=== PATIENT | male | born 1955 | race Caucasian/White ===

== ENCOUNTER 2019-04-22 11:30 | Inpatient (IN) | payer OTHER ==
[~2019-04-22] VITALS: Ht 175.3 cm; Wt 48.1 kg
--- NOTE | 2019-05-05 17:45 | Pre-op HX & Phy Repo 2 SIG ---
DATE OF ADMISSION: 05/06/2019 HISTORY OF PRESENT ILLNESS: The patient is a 63-year-old male in overall stable health with a malfunctioning ileostomy. The patient has a past history of ulcerative colitis and in 1990, underwent proctocolectomy with creation of a conventional Nikole ileostomy. In 1991, he underwent surgery to convert his conventional ileostomy to a Pablo type of continent ileostomy in [place] at the . In 1997, he had revision of his pouch with detachment from the abdominal wall. Four years after his surgery, he had ongoing abdominal pain and difficulty eating and multiple admissions for small bowel obstruction. He was found down at home in June 2018 and presented to the emergency room by ambulance with acute renal failure, severe dehydration, sepsis, and underwent surgery for a perforation of his Pablo continent ileostomy pouch. Dense adhesions were described. The conventional ileostomy was created. Pathology revealed no granulomas or malignancy, but only acute inflammation and ulcerations. Of note, was that the patient presented cachectic and extremely debilitated and nutritionally depleted. Since then, the patient has recovered with normal laboratories including albumin within normal limits and wishes to undergo surgery to create another continent ileostomy. He has difficulty coping with the ileostomy and managing it. He has frequent leaks under the appliance and he has developed prolapse of up to 5 cm. He is unable to function or work. He has also had a problem with frequent small bowel obstructions requiring nasogastric tube or brief periods of time fasting at home. He also states his stoma is located in the abdominal fold, which makes it more difficult to maintain an external appliance. The patient changes his appliance daily. When he had his Pablo pouch, he states he had occasional pouchitis, which resolved with Cipro. He is scheduled to undergo surgery to create another continent ileostomy. OPERATIONS: In addition to the above, he underwent bilateral inguinal hernia repair, one in 2016 of right side followed by infection with no mesh and the left side in 2017. MEDICATIONS: Acyclovir daily, diclofenac topical for leg cramps, etodolac for abdominal and joint pain, [place] 10 mg, Cymbalta for posttraumatic stress disorder, gabapentin, Zantac, aspirin 81 mg, vitamin B12 and iron supplements, glipizide, lactase, and magnesium oxide for leg cramps. ALLERGIES: Some types of adhesive tape cause skin reaction. REVIEW OF SYSTEMS: 1) The patient has had suicidal issues in 2007 and had a suicide attempt with pills. He has stated if he can have another Pablo pouch, he would consider suicide. He has been seen by Psychiatry at the in [place] who provides his care. 2) Lifelong fat malabsorption. PHYSICAL EXAMINATION: The patient is 5 feet 9 inches and 120 pounds. The patient is [place] from [place] of state and will be examined upon arrival and dictated separately. IMPRESSION: 1. Malfunctioning ileostomy with prolapse and extreme difficulty managing external appliance. 2. History of ulcerative colitis. 3. Status post multiple abdominal operations. 3.1. Proctocolectomy and Nikole ileostomy in 1990. 3.2. Pablo continent intestinal reservoir in 1991 in the in [place] 3.3. Revision for pouch detachment from abdominal wall in 1997. 3.4. Resection of Pablo pouch for perforation with sepsis and finding of dense adhesions creating a conventional ileostomy in [place] on 06/28/2018. PLAN: I have had a full discussion with the patient regarding his condition, the nature of the surgery, indications, alternatives, options, and risks including bleeding, infection, injury to adjacent structures or organs, fistula, slipped valve, and need for revisions. I have also discussed the possibility that if he has a hostile or frozen abdomen that a Pablo pouch cannot be created, we will revise his conventional ileostomy or if he does not have enough small intestine or if it is diseased. I will have another repeat discussion in person when he arrives from out of state. He will undergo insertion of a dual lumen PICC line placement for intravenous hydration during bowel prep. Preoperative intravenous antibiotics started the night before surgery and preoperative subcutaneous heparin. Will Quintero M.D. DR: SEDA JOB#: [id number] CC: ELVIRA
[2019-05-06] MEDS ORDERED: LORazepam 1mg tab ORAL PRN ×2 (08:30→12:45)
[2019-05-06] MEDS ORDERED: Lidocaine 1% Plain 30 ml INJ PRN (08:30)
[2019-05-06] MEDS ORDERED: Heparin1,000 units/500ml Premix(Conc:2 units/ml) IV PRN (08:30)
[2019-05-06 09:28] LABS: BASOPHILS % (AUTO) 0.8 % (0.0-2.0); EOSINOPHILS % (AUTO) 6.3 % (0.0-3.0); HEMATOCRIT 40.9 % (42.0-52.0); HEMOGLOBIN 13.2 G/DL (14.2-18.0); LYMPHOCYTES % (AUTO) 34.5 % (20.0-45.0); MEAN CORPUSCULAR VOLUME 89 FL (80-99); MONOCYTES % (AUTO) 10.6 % (1.0-10.0); NEUTROPHILS % (AUTO) 47.8 % (45.0-75.0); PLATELET COUNT 259 K/UL (150-450); RED BLOOD COUNT 4.58 M/UL (4.70-6.10); RED CELL DISTRIBUTION WIDTH 12.4 % (11.6-14.8); WHITE BLOOD COUNT 8.6 K/UL (4.8-10.8)
[2019-05-06 09:32] LABS: INR 0.9 (0.9-1.1)
[2019-05-06 09:37] LABS: ANION GAP 8 mmol/L (5-15); BLOOD UREA NITROGEN 28 mg/dL (7-18); CALCIUM 9.3 MG/DL (8.5-10.1); CARBON DIOXIDE 26 MMOL/L (21-32); CHLORIDE 105 MMOL/L (98-107); CREATININE 0.9 MG/DL (0.55-1.30); POTASSIUM 4.6 MMOL/L (3.5-5.1); SODIUM 139 MMOL/L (136-145)
[2019-05-06 09:42] LABS: ALANINE AMINOTRANSFERASE 30 U/L (12-78); ALBUMIN 4.4 G/DL (3.4-5.0); ALBUMIN/GLOBULIN RATIO 1.4 (1.0-2.7); ALKALINE PHOSPHATASE 67 U/L (46-116); ASPARTATE AMINO TRANSFERASE 29 U/L (15-37); BILIRUBIN,TOTAL 0.3 MG/DL (0.2-1.0)
--- NOTE | 2019-05-06 09:55 | Diagnostic Imaging Report ---
Indication: Cough Technique: One view of the chest Comparison: none Findings: Lung apices are cut off. Additional repeat imaging performed per patient request. The lungs and pleural spaces are clear. Heart size is normal. Impression: Negative
[2019-05-06] MEDS ORDERED: VITAMIN A8000 UNIT PO (11:24)
[2019-05-06] MEDS ORDERED: CALCIUM CARBON650 M2 PO (11:24)
[2019-05-06] MEDS ORDERED: HYDROCODON-ACE1 EA13 ORAL (11:24)
[2019-05-06] MEDS ORDERED: MAG-OXIDE400 M1 PO (11:24)
[2019-05-06] MEDS ORDERED: FERROUS SULFAT500 G1 MC (11:38)
[2019-05-06] MEDS ORDERED: GABAPENTIN100 MG ORAL (11:38)
[2019-05-06] MEDS ORDERED: ZOVIRAX200 MG PO (11:38)
[2019-05-06] MEDS ORDERED: ZOFRAN4 MG ORAL (11:38)
[2019-05-06] MEDS ORDERED: CYMBALTA60 MG ORAL (11:38)
[2019-05-06] MEDS ORDERED: ETODOLAC300 MG PO (11:38)
[2019-05-06] MEDS ORDERED: ASPIRIN-LOW81 MG ORAL (11:44)
[2019-05-06] MEDS ORDERED: GLIPIZIDE5 G1 MC (11:44)
[2019-05-06] MEDS ORDERED: VITAMIN D400 INTLU ORAL (11:44)
[2019-05-06] MEDS ORDERED: VITAMIN B-121000 MCG PO (11:44)
[2019-05-06 11:55] LABS: APPEARANCE,URINE CLEAR; BILIRUBIN, URINE 1+ (NEGATIVE); GLUCOSE, URINE (UA) NEGATIVE (NEGATIVE); KETONES,URINE NEGATIVE (NEGATIVE); LEUKOCYTE ESTERASE ,URINE 1+ (NEGATIVE); NITRITE,URINE NEGATIVE (NEGATIVE); PH,URINE 6 (4.5-8.0); PROTEIN,URINE 2+ (NEGATIVE); UROBILINOGEN,URINE NORMAL MG/DL (0.0-1.0)
[2019-05-06 11:56] LABS: COLOR,URINE YELLOW
[2019-05-06 12:00] VITALS: BP 130/69
[2019-05-06] MEDS: Neomycin Sulfate 500mg Tab ORAL SCH ×3 (14:29→20:13)
[2019-05-06] MEDS ORDERED: HYDROcodone/Acetamin 10/325 tab ORAL SCH (15:30)
[2019-05-06] MEDS: D5 1/2NS w/KCl 20mEq 1,000 ML IV SCH (16:03)
--- NOTE | 2019-05-06 16:08 | Pre-Procedure Note/Attestation ---
Pre-Procedure Note/Attestation Complete Prior to Procedure Planned Procedure: not applicable Procedure Narrative: PICC Indications for Procedure Pre-Operative Diagnosis: needs fpc IV access Attestation I attest that I discussed the nature of the procedure; its benefits; risks and complications; and alternatives (and the risks and benefits of such alternatives ), prior to the procedure, with the patient (or the patient's legal telephone claims representative). I attest that, if there was a reasonable possibility of needing a blood transfusion, the patient (or the patient's legal telephone claims representative) was given the [facility] standardized written summary, pursuant to the Yun[place] Blood Safety Act ([place] Health and Safety Code # 1645, as amended). I attest that I re-evaluated the patient just prior to the surgery and that there has been no change in the patient's H&P, except as documented below: Curtis Gomez MD May 06, 2019 16:08
[2019-05-06 16:09] VITALS: BP 121/69
--- NOTE | 2019-05-06 16:09 | Brief Operative Note ---
Immediate Post Operative Note Operative Note Pre-op Diagnosis: needs continuous churn buttermaker IV access Procedure: PICC Post-op Diagnosis: same as pre-op Surgeon: TOM Anesthesia: local Specimen: none Complications: none Condition: stable Fluids: none Estimated Blood Loss: minimal Drains: none Implant(s) used?: No Curtis Gomez MD May 06, 2019 16:09
--- NOTE | 2019-05-06 16:15 | Diagnostic Imaging Report ---
Indications: Needs long-term IV access Technique: Ultrasound confirms patent compressible left basilic vein. Total sterile technique, including sterile probe cover and sterile gel, hat, mask, sterile gown, large sterile drape, and preparation with 2% chlorhexidine utilized. Local anesthesia with 1% lidocaine. Under real-time ultrasound guidance, puncture basilic vein using 21-gauge needle, documented and archived, passage 0.018 guidewire under direct fluoroscopy, which was used to determine appropriate catheter length, exchange for 4 Trinidadian peel-away sheath. 4 Trinidadian Bard dual-lumen power PICC cut to 45 cm. It was inserted through the peel-away sheath. Peel-away sheath and guidewire removed. Catheter fixed to the skin. Both catheter ports aspirated and flushed. Patient tolerated procedure well, without immediate complication. Digital radiograph documents satisfactory catheter tip position, at the cavoatrial junction. Total fluoroscopy time 23.8 seconds. Total dose area product [id number] [id number] Total number of images: One Impression: Successful placement of left arm PICC under sonographic and fluoroscopic guidance, as described above.
[2019-05-06] MEDS ORDERED: HYDROcodone/Acetamin 10/325 tab ORAL PRN (16:22)
--- NOTE | 2019-05-06 16:22 | General Progress Note ---
Progress Note Progress Note H&P dictated. BUN high 28 Will give IV fluids and r/u labs in AM with iron,B12, folate levels and ferritin Full discussion regarding surgery, gastrostomy, BCIR, need for TPN with weight loss, options, risks. Will start IV antibiotics tonite via PIC line and give SQ heparin in AM pre-op Will Quitnero MD May 06, 2019 16:22
[2019-05-06] MEDS: DULoxetine 30mg cap ORAL SCH (17:09)
[2019-05-06] MEDS: Magnesium Oxide 400mg tab ORAL SCH (17:09)
[2019-05-06] MEDS: Acyclovir 200mg Cap ORAL SCH (17:55)
[2019-05-06] MEDS ORDERED: D5 1/2NS w/KCl 20mEq 1,000 ML IV SCH ×2 (18:00)
[2019-05-06 20:00] VITALS: BP 112/67
[2019-05-06] MEDS: Dyna-Hex 2% Top Sol 2oz TOPIC SCH (20:14)
--- NOTE | 2019-05-06 23:00 | Pre-op HX & Phy Repo 2 SIG ---
DATE OF ADMISSION: 05/06/2019 HISTORY OF PRESENT ILLNESS: Please see previously dictated history. The patient is now arrived from [place] of state and is examined. He is very thin and is 5 feet 9 inches and 120 pounds. He states that his weight is stable, but much lower than his usual weight. PHYSICAL EXAMINATION: VITAL SIGNS: Within normal limits with slight bradycardia approximately 60. HEENT: Within normal limits. LUNGS: Clear. HEART: Regular rhythm. BREASTS: Without masses. ABDOMEN: Soft and flat. There is a long midline scar and other abdominal scars. The Nikole ileostomy is high in the right lower quadrant just under the costal margin, which significantly contributes to his difficulty maintaining an appliance as the faceplate rubs up against the costal margin. There is some laxity of the midline fascia in the lower abdomen, but no obvious hernia. The testis and scrotum are within normal limits. He has Peyronie's disease rectal status post proctectomy. EXTREMITIES: Without edema. Pulses 3+ femoral to pedal bilaterally. NEUROLOGIC: Physiologic. IMPRESSION: 1. Malfunctioning ileostomy with prolapse and extreme difficulty managing his external appliance. 2. History of ulcerative colitis. 3. Severe fat malabsorption lifelong. 4. Diabetes, controlled with oral agents. 5. Posttraumatic stress disorder. 6. Neuropathy. 7. Chronic anemia. 8. History of ulcerative colitis. 9. Status post multiple abdominal operations 9.1. Proctocolectomy and Nikole ileostomy in 1990. 9.2. Pablo continent intestinal reservoir in 1991 in [place]. 9.3. Revision of Pablo pouch for detachment from abdominal wall 1997 9.4. Resection of Pablo pouch for perforation with sepsis and finding of dense adhesions with creation of a conventional ileostomy in [place] on 06/28/2018 with pathology revealing acute inflammation and ulcerations. PLAN: 1. Pablo continent intestinal reservoir and temporary catheter gastrostomy with takedown of conventional ileostomy. DISCUSSION: I have had a full discussion with the patient regarding his condition, the nature of the surgery, indications, alternatives, options, and risks, all of them listed in the previous dictation. I told him it was very unlikely that we will be unable to create a new Pablo pouch, but if we cannot, we will do everything possible to revise his current ileostomy to make it much more manageable and enhance his quality of life greatly. The patient understands and agrees to proceed. All questions have been answered. Will Quintero M.D. DR: SEDA JOB#: [id number] CC: ELVIRA
[2019-05-06] MEDS: Ampicillin/Sulbactam Sod 3 GM in NS 110 ML IVPB SCH (23:16)
[2019-05-07] VITALS (18 sets, daily range): BP systolic 106–132; BP diastolic 55–70
[2019-05-07] MEDS: D5 1/2NS w/KCl 20mEq 1,000 ML IV SCH (01:33)
[2019-05-07] MEDS ORDERED: Heparin 5000 units/ml inj SUBQ SCH (05:30)
[2019-05-07 05:46] LABS: BASOPHILS % (AUTO) 0.4 % (0.0-2.0); EOSINOPHILS % (AUTO) 6.9 % (0.0-3.0); HEMOGLOBIN 11.9 G/DL (14.2-18.0); LYMPHOCYTES % (AUTO) 30.2 % (20.0-45.0); MEAN CORPUSCULAR VOLUME 88 FL (80-99); MONOCYTES % (AUTO) 9.4 % (1.0-10.0); NEUTROPHILS % (AUTO) 53.2 % (45.0-75.0); PLATELET COUNT 207 K/UL (150-450); RED BLOOD COUNT 4.19 M/UL (4.70-6.10); RED CELL DISTRIBUTION WIDTH 12.2 % (11.6-14.8); WHITE BLOOD COUNT 8.7 K/UL (4.8-10.8)
[2019-05-07] MEDS: Ampicillin/Sulbactam Sod 3 GM in NS 110 ML IVPB SCH ×2 (06:11→12:00)
[2019-05-07 06:17] LABS: % IRON SATURATION 33 % (15-50); IRON 74 ug/dL (50-175); TOTAL IRON BINDING CAPACITY 225 ug/dL (250-450)
[2019-05-07 06:33] LABS: ALANINE AMINOTRANSFERASE 23 U/L (12-78); ALBUMIN 3.4 G/DL (3.4-5.0); ALBUMIN/GLOBULIN RATIO 1.5 (1.0-2.7); ALKALINE PHOSPHATASE 51 U/L (46-116); ANION GAP 6 mmol/L (5-15); ASPARTATE AMINO TRANSFERASE 25 U/L (15-37); BILIRUBIN,TOTAL 0.4 MG/DL (0.2-1.0); BLOOD UREA NITROGEN 11 mg/dL (7-18); CALCIUM 8.6 MG/DL (8.5-10.1); CARBON DIOXIDE 27 MMOL/L (21-32); CHLORIDE 109 MMOL/L (98-107); CREATININE 0.7 MG/DL (0.55-1.30); FERRITIN 282 NG/ML (8-388); POTASSIUM 4.3 MMOL/L (3.5-5.1); SODIUM 142 MMOL/L (136-145)
[2019-05-07] MEDS ORDERED: TransDerm Scop 1.5mg/72HR Patch TDERMAL ONE ×2 (07:07→09:15)
[2019-05-07] MEDS ORDERED: Zemuron 50mg/5ml Inj IV ONE (07:08)
[2019-05-07] MEDS ORDERED: Bacitracin 50000 Units Vial ONE (07:16)
[2019-05-07] MEDS ORDERED: NeoSporin Gu Irrig 1ml Amp IRRIG ONE (07:16)
[2019-05-07] MEDS ORDERED: fentaNYL 100 mcg/2 mL IV ONE (07:19)
[2019-05-07] MEDS ORDERED: Propofol 200mg/20ml IV ONE (07:20)
[2019-05-07] MEDS ORDERED: Lidocaine 1% MPF 10mg/ml 5ml ONE (07:20)
[2019-05-07] MEDS ORDERED: Midazolam 2mg/2ml Inj ONE (07:20)
--- NOTE | 2019-05-07 07:23 | Pre-Procedure Note/Attestation ---
Pre-Procedure Note/Attestation Complete Prior to Procedure Planned Procedure: not applicable Procedure Narrative: Pablo Continent Intestinal Dufur; gastrostomy Indications for Procedure Pre-Operative Diagnosis: malfunctioning ileostomy, history of ulcerative colitis Attestation I attest that I discussed the nature of the procedure; its benefits; risks and complications; and alternatives (and the risks and benefits of such alternatives ), prior to the procedure, with the patient (or the patient's legal physician relations representative). I attest that, if there was a reasonable possibility of needing a blood transfusion, the patient (or the patient's legal physician relations representative) was given the [facility] standardized written summary, pursuant to the Yuniel [place] Blood Safety Act ([place] Health and Safety Code # 1645, as amended). I attest that I re-evaluated the patient just prior to the surgery and that there has been no change in the patient's H&P, except as documented below: none Will Quintero MD May 07, 2019 07:23
[2019-05-07] MEDS ORDERED: NS Irrig 1000ml ONE (07:30)
[2019-05-07] MEDS ORDERED: Succinylcholine 20mg/ml 10ml vial ONE (07:30)
[2019-05-07] MEDS ORDERED: LR 1000ml ONE (07:30)
[2019-05-07] MEDS ORDERED: Sterile Water Irrig 1000ml IRRIG ONE (07:30)
[2019-05-07] MEDS ORDERED: NS Irrig 1000ml IRRIG ONE ×3 (07:46→08:25)
[2019-05-07] MEDS ORDERED: ePHEDrine 50mg/ml Inj ONE (08:23)
[2019-05-07] MEDS ORDERED: Sodium Chloride 10ml vial INJ ONE ×2 (08:23→08:45)
[2019-05-07] MEDS ORDERED: Morphine Sulfate 10mg/ml Inj ONE (08:43)
--- NOTE | 2019-05-07 08:58 | Anethesia Preoperative Eval ---
Anesthesia Pre-op PMH/ROS General Date of Evaluation: May 06, 2019 Time of Evaluation: 16:20 Anesthesiologist: Evelyn ASA Score: ASA 3 Mallampati Score Class I : Soft palate, uvula, fauces, pillars visible Class II: Soft palate, uvula, fauces visible Class III: Soft palate, base of uvula visible Class IV: Only hard plate visible Mallampati Classification: Class II Surgeon: Ingrid Diagnosis: Malfunctioning ileostomy Surgical Procedure: Ex laparotomy, revision of continent pouch Anesthesia History: PONV Social History: current smoker Family History: no anesthesia problems Allergies: Coded Allergies: ALCOHOL (Verified Allergy, Intermediate, 05/06/19) sever nausea when drinking alcohol Uncoded Allergies: nicotin patch (Allergy, Intermediate, Rash, 05/06/19) Medications: see eMAR Patient NPO?: Yes NPO Date: May 07, 2019 NPO Time: 0000 Past Medical History Cardiovascular: Denies: HTN, CAD, MT, valve dz, arrhythmia, other Pulmonary: Reports: COPD - mild; Denies: asthma, ZURI, other Gastrointestinal/Genitourinary: Reports: GERD, CRI - elevated Cr., other - UC s /p total colectomy Neurologic/Psychiatric: Reports: depression/anxiety, other - chronic pauin; Denies: dementia, CVA, TIA Endocrine: Reports: DM - on pills controlled; Denies: hypothyroidism, steroids, other HEENT: Denies: cataract (L), cataract (R), glaucoma, ATKA (L), ATKA (R), other Hematology/Immune: Reports: anemia; Denies: DVT, bleeding disorder, other Musculoskeletal/Integumentary: Denies: OA, RA, DJD, DDD, edema, other Other: other - malnourished PMH Narrative: as above PSxH Narrative: multiple abdominal Sx, see H&P Anesthesia Pre-op Phys. Exam Physician Exam Last Vital Signs Date Time Temp Pulse Resp B/P (MAP) Pulse Ox O2 Delivery O2 Flow Rate FiO2 05/07/19 05:20 98.3 64 17 113/65 (81) 97 05/06/19 21:00 Room Air Constitutional: NAD Neurologic: CN 2-12 intact Cardiovascular: RRR, no M/R/G Respiratory: other - some wheezing Gastrointestinal: S/NT/ND Airway Exam Mallampati Score: Class II MO: full Neck: stiff ROM: limited Teeth: missing Dentures: no upper, no lower Anesthesia Pre-op A/P Labs Hematology Test 05/06/19 09:05 05/07/19 05:10 White Blood Count 8.6 K/UL (4.8-10.8) 8.7 K/UL (4.8-10.8) Red Blood Count 4.58 M/UL (4.70-6.10) L 4.19 M/UL (4.70-6.10) L Hemoglobin 13.2 G/DL (14.2-18.0) L 11.9 G/DL (14.2-18.0) L Hematocrit 40.9 % (42.0-52.0) L 37.0 % (42.0-52.0) L Mean Corpuscular Volume 89 FL (80-99) 88 FL (80-99) Mean Corpuscular Hemoglobin 28.8 PG (27.0-31.0) 28.5 PG (27.0-31.0) Mean Corpuscular Hemoglobin Concent 32.3 G/DL (32.0-36.0) 32.3 G/DL (32.0-36.0) Red Cell Distribution Width 12.4 % (11.6-14.8) 12.2 % (11.6-14.8) Platelet Count 259 K/UL (150-450) 207 K/UL (150-450) Mean Platelet Volume 8.6 FL (6.5-10.1) 9.8 FL (6.5-10.1) Neutrophils (%) (Auto) 47.8 % (45.0-75.0) 53.2 % (45.0-75.0) Lymphocytes (%) (Auto) 34.5 % (20.0-45.0) 30.2 % (20.0-45.0) Monocytes (%) (Auto) 10.6 % (1.0-10.0) H 9.4 % (1.0-10.0) Eosinophils (%) (Auto) 6.3 % (0.0-3.0) H 6.9 % (0.0-3.0) H Basophils (%) (Auto) 0.8 % (0.0-2.0) 0.4 % (0.0-2.0) Coagulation Test 05/06/19 09:05 Prothrombin Time 9.4 SEC (9.30-11.50) Prothromb Time International Ratio 0.9 (0.9-1.1) Activated Partial Thromboplast Time 28 SEC (23-33) Chemistry Test 05/06/19 09:05 05/07/19 05:10 Sodium Level 139 MMOL/L (136-145) 142 MMOL/L (136-145) Potassium Level 4.6 MMOL/L (3.5-5.1) 4.3 MMOL/L (3.5-5.1) Chloride Level 105 MMOL/L (98-107) 109 MMOL/L (98-107) H Carbon Dioxide Level 26 MMOL/L (21-32) 27 MMOL/L (21-32) Anion Gap 8 mmol/L (5-15) 6 mmol/L (5-15) Blood Urea Nitrogen 28 mg/dL (7-18) H 11 mg/dL (7-18) Creatinine 0.9 MG/DL (0.55-1.30) 0.7 MG/DL (0.55-1.30) Estimat Glomerular Filtration Rate > 60 mL/min (>60) > 60 mL/min (>60) Glucose Level 144 MG/DL (74-106) H 104 MG/DL (74-106) Calcium Level 9.3 MG/DL (8.5-10.1) 8.6 MG/DL (8.5-10.1) Total Bilirubin 0.3 MG/DL (0.2-1.0) 0.4 MG/DL (0.2-1.0) Aspartate Amino Transf (AST/SGOT) 29 U/L (15-37) 25 U/L (15-37) Alanine Aminotransferase (ALT/SGPT) 30 U/L (12-78) 23 U/L (12-78) Alkaline Phosphatase 67 U/L (46-116) 51 U/L (46-116) Total Protein 7.6 G/DL (6.4-8.2) 5.6 G/DL (6.4-8.2) L Albumin 4.4 G/DL (3.4-5.0) 3.4 G/DL (3.4-5.0) Globulin 3.2 g/dL 2.2 g/dL Albumin/Globulin Ratio 1.4 (1.0-2.7) 1.5 (1.0-2.7) Iron Level 74 ug/dL (50-175) Total Iron Binding Capacity 225 ug/dL (250-450) L Percent Iron Saturation 33 % (15-50) Unsaturated Iron Binding 151 ug/dL (112-346) Ferritin 282 NG/ML (8-388) Vitamin B12 Level 1424 PG/ML (193-986) H Folate 18.6 NG/ML (8.6-58.9) Risk Assessment & Plan Assessment: ASA 3 Plan: GA with ETT PONV prevention Status Change Before Surgery: No Pre-Antibiotics Drug: as scheduled Donny Diaz MD May 07, 2019 08:58
[2019-05-07] MEDS: Acyclovir 200mg Cap ORAL SCH (09:00)
[2019-05-07] MEDS: Magnesium Oxide 400mg tab ORAL SCH (09:00)
[2019-05-07] MEDS: DULoxetine 30mg cap ORAL SCH (09:00)
[2019-05-07] MEDS ORDERED: Acetaminophen (Non formulary) 100 ML IV ONE (09:15)
[2019-05-07] MEDS ORDERED: Neostigmine 1mg/ml 10ml Inj ONE (09:27)
[2019-05-07] MEDS ORDERED: Glycopyrrolate 0.2mg/ml 1ml Vial ONE (09:27)
[2019-05-07] MEDS ORDERED: Tubing IV Secondary IV ONE (09:35)
[2019-05-07] MEDS ORDERED: LR 1000ml 1,000 ML IVLG SCH (11:28)
[2019-05-07] MEDS ORDERED: DiphenhydrAMINE 50mg/ml Inj IVP PRN ×2 (11:30→13:30)
[2019-05-07] MEDS ORDERED: Midazolam 2mg/2ml Inj IVP PRN (11:30)
[2019-05-07] MEDS ORDERED: Metoclopramide 10mg/2ml Inj IVP PRN (11:30)
[2019-05-07] MEDS ORDERED: Hydromorphone 0.5mg/0.5ml inj IVP PRN (11:30)
[2019-05-07] MEDS ORDERED: Meperidine 50mg/ml Inj(FOR RIGORS ONLY) IV PRN (11:30)
--- NOTE | 2019-05-07 12:27 | Brief Operative Note ---
Immediate Post Operative Note Operative Note Pre-op Diagnosis: malfunctioning ileostomy, history of ulcerative colitis Procedure: Pablo continent intestinal reservoir; gastrostomy Post-op Diagnosis: same Post-op Diagnosis: same as pre-op Findings: consistent w/pre-op dx studies Surgeon: oswald Psychologist Personnel: crystal Anesthesiologist: juana Anesthesia: general Specimen: yes - ileostomy, bowel trimming Complications: none Condition: stable Fluids: see anesthesia record Estimated Blood Loss: volume - 50cc Drains: other - 28 Gomez Pablo pouch; 18fr gastrostomy; 0.25"tristan Implant(s) used?: No Will Quintero MD May 07, 2019 12:27
[2019-05-07] MEDS ORDERED: Acetaminophen 650mg/20.3ml GT PRN (12:30)
[2019-05-07] MEDS ORDERED: Insulin Human Regular 100units/ml 3ml SUBQ SCH (12:30)
--- NOTE | 2019-05-07 12:33 | Immediate Post-Op Evaluation ---
Immediate Post-Op Evalulation Immediate Post-Op Evalulation Procedure: Ex laparotomy, creation of continent pouch Date of Evaluation: May 07, 2019 Time of Evaluation: 12:32 IV Fluids: 1400 Blood Products: Albumin 250 Estimated Blood Loss: 50 Urinary Output: 150 Blood Pressure Systolic: 116 Blood Pressure Diastolic: 52 Pulse Rate: 68 Respiratory Rate: 20 O2 Sat by Pulse Oximetry: 98 Temperature (Fahrenheit): 98.3 Pain Score (1-10): 1 Nausea: No Vomiting: No Complications none Patient Status: reacts, patent, extubated, none Hydration Status: adequate Donny Diaz MD May 07, 2019 12:33
[2019-05-07] MEDS: PCA Morphine 1mg/ml 30 ML IV PRN (12:53)
--- NOTE | 2019-05-07 13:11 | CDS Physician Query ---
Clarification is required for compliance, coding accuracy, and to reflect severity of illness for this patient Dear Dr. Will Quintero Date: 05/07/2019 [employer] Supervisor/CDS Name: Marni Coombs Clinical Documentation shows: 63 yo M with BMI 17.7 presents with malfunctioning ileostomy with prolapse and extreme difficulty managing his external appliance. HNP: He is very thin and is 5 feet 9 inches and 120 pounds. He states that his weight is stable, but much lower than his usual weight. Operation: Pablo continent intestinal reservoir; gastrostomy Please select the most appropriate option: [] Protein/Calorie Malnutrition [] Mild [] Moderate [] Severe [] Hypoalbuminemia [] Cachexia [] Underweight [] Other [] Unable to determine [] Not Applicable Present on Admission: [] Yes [] No [] Clinically Undetermined Physician signature Date Please also document in your Progress Notes and/or Discharge Summary and indicate if the condition was present on admission. MTDD
[2019-05-07] MEDS ORDERED: Naloxone 0.4mg/ml Inj IVP PRN (13:30)
[2019-05-07] MEDS ORDERED: Rate Change PCA 1 Each MISC PRN (13:30)
[2019-05-07] MEDS ORDERED: Morphine Sulfate 2mg/ml Inj(IV/IM USE ONLY) IVP PRN (13:30)
[2019-05-07] MEDS ORDERED: LORazepam 1mg tab SL PRN (13:30)
[2019-05-07] MEDS: 1/2NS w/KCl 20mEq 1000ml 1,000 ML IV SCH (14:45)
--- NOTE | 2019-05-07 17:00 | Operative Note - Dictated ---
DATE OF OPERATION: 05/07/2019 SURGEON: Will Quintero M.D. COOK [employer]GETABLE SURGEON: Champ Neil M.D. ANESTHESIOLOGIST: Donny Daiz M.D. TYPE OF ANESTHESIA: General endotracheal. PREOPERATIVE DIAGNOSES: 1. Malfunctioning ileostomy. 2. History of ulcerative colitis. 3. Status post multiple abdominal operations. 3.1. Proctocolectomy and Nikole ileostomy in 1990. 3.2. Pablo continent intestinal reservoir in 1991 in [place]. 3.3. Revision for pouch detachment from abdominal wall in 1997. 3.4. Resection of Pablo pouch for perforation with sepsis and finding of dense adhesions with creation of a conventional ileostomy in [place] on 06/28/2018. POSTOPERATIVE DIAGNOSES: 1. Malfunctioning ileostomy. 2. History of ulcerative colitis. 3. Status post multiple abdominal operations. 3.1. Proctocolectomy and Nikole ileostomy in 1990. 3.2. Pablo continent intestinal reservoir in 1991 in [place]. 3.3. Revision for pouch detachment from abdominal wall in 1997. 3.4. Resection of Pablo pouch for perforation with sepsis and finding of dense adhesions with creation of a conventional ileostomy in [place] on 06/28/2018. OPERATION PERFORMED: Pablo continent intestinal reservoir continent ileostomy with takedown of conventional ileostomy and temporary catheter gastrostomy. DESCRIPTION OF PROCEDURE: The patient was taken to the operating room and under general endotracheal anesthesia with sequential compression device stockings and Gomez catheter in place and having received preoperative intravenous antibiotics and subcutaneous heparin, the patient was prepped and draped in the usual fashion. The stoma of his ileostomy was high in the right upper quadrant just below the costal margin and would at times prolapse slightly, but most of the time was completely flush retracted. This accounted for his extreme difficulty managing his appliance. Previous midline incision was reopened. I did not excise the skin scar because the skin seemed tight. There were only mild adhesions to the undersurface of the abdominal wall, but there were multiple interloop adhesions and multiple loops of bowel in the pelvis. Adhesions were taken down starting at the ileostomy and liberating the bowel, he had a very large amount of small bowel loops all of which were completely normal. The stomach was normal. The liver was scarred, but appeared normal. The gallbladder was dilated and distended, but gradually during the procedure emptied spontaneously. There were no palpable stones and no signs of any inflammation. With a transversely oriented elliptical incision, the stoma in the right upper quadrant was mobilized and brought down into the abdomen. The fascia was closed vertically with continuous 0 looped PDS and a Betadine-soaked Ray-Amber placed into the subcutaneous tissues. The patient was very thin and the midline fascia was attenuated and adherent to the overlying skin, but he did not have a preoperative ventral hernia. The end of the ileostomy was resected dividing the mesentery between clamps ligating with 2-0 silk and then dividing the 1 inch of distal ileum that was the stoma using the linear stapler 30 Green Load with the staple line imbricated with 3-0 silk. A 12 cm proximal was marked for the collar segment. A 15 cm proximal to this, was marked for the pouch and then the two adjacent 15 cm loops of small bowel were placed side by side. With appropriately located enterotomies and using several applications of the HUI 75, the ileal reservoir was created. The staple line was completely everted and there was no evidence of any disruption or leak. The mucosal aspect was completely examined and medium hemoclips placed for hemostasis. A 3-0 silk suture placed at the apex of the pouch. The junction of the afferent bowel and pouch was marked with a 2-0 chromic and 12 cm proximal marked of the nipple valve segment. A 2 fingerbreadth mesenteric hiatus created at this point using the Thunderbeat electrosurgical device. The thickness of the abdominal wall in the right lower quadrant was only 1 cm. The appropriate length access segment was measured and marked and then preserving two good vessels to the access segment, the bowel was divided proximally with a TA-30 distally left open to become the new stoma with the mesentery divided to its base with the Thunderbeat device. The staple line was imbricated with 3-0 silk. Now, I made attempts to strip the peritoneum overlying the mesentery on each side of the valve segment, but the mesentery was very thin and somewhat fragile, so this was done very cautiously. The serosa was scarified with cautery and then with gradual intussusception, a 6.0 cm long nipple valve was created. Three applications of the PI 55 stapling device with 4.8 mm mayela were applied avoiding the mesentery. Then, I used 3-0 silk sutures to suture the access segment to the pouch on both sides of its mesentery. I then used a fourth application of the PI 55 stapling device with 4.8 mm mayela to staple the valve to the anterior pouch wall. Additional 3-0 silk sutures placed between the access segment and the pouch. Using a Steward suction cannula, there was a straight passage from the stoma into the pouch. Now, the afferent bowel was placed side by side with a pouch enterotomy and a [id number] anastomosis was created with an outer layer of interrupted 3-0 silk and then the proximal bowel opened and a full-thickness continuous locking 2-0 chromic starting posteriorly, continued anteriorly to complete a generous two fingerbreadth anastomosis. An outer layer of 3-0 silk was placed. Then, the collar was brought through the mesenteric hiatus at the junction of the access and valve segments and the collar was sutured to the access segment to itself into the pouch with multiple interrupted 3-0 silk sutures. A 28-Mexican Gomez catheter was placed into the pouch and the afferent bowel manually occluded. The pouch was distended with 140 mL of saline. There was no evidence of any leak. The pouch was decompressed and the catheter removed. The abdominal cavity was inspected and irrigated and hemostasis was satisfactory. The bladder and ureters have been protected throughout the procedure. The pouch lay nicely transversely down towards the pelvis with bowel loops cleared anatomically. At the new site low in the right lower quadrant, a transverse incision was made with a cruciate incision in the rectus fascia, a 2 fingerbreadth abdominal wall hiatus was created. The posterior pouch was sutured to the peritoneum with interrupted 3-0 Vicryl and then the access segment with its mesentery brought through the abdominal wall. The anterior pouch sutured to the peritoneum with 3-0 Vicryl. The slight redundancy of the access segment was excised and the stoma primarily matured with continuous 2-0 chromic locking sutures starting at the 3 and 9 o'clock positions. A very satisfactory stoma was achieved. The 28-Mexican Gomez catheter was appropriately positioned in the pouch and sutured to the skin with two sutures of 2-0 silk. It was flushed and connected to a gravity drainage bag. In order to provide complete decompression of the gastrointestinal tract, a catheter gastrostomy was indicated. An 18-Mexican Gomez catheter was brought through a stab incision in the left upper quadrant and placed into the stomach anterior wall of body between two concentric 2-0 chromic pursestring sutures with the balloon inflated and the stomach sutured to the anterior abdominal wall with multiple interrupted 3-0 silk sutures. The catheter was sutured to the skin with a 2-0 silk suture and then flushed and connected to a gravity drainage bag. Throughout the procedure, antibiotic soaked lap sponges had been used to protect the incision and the Dar retractor had been used. Now, the midline fascia was closed with continuous 0 looped PDS, elevating the skin edges. The skin was closed with mayela and the skin of the prior ileostomy was closed with several interrupted vertical mattress 2-0 nylon sutures as well as mayela. Final sponge and needle counts were correct. Dry sterile dressings were applied. The patient tolerated the procedure well and left the operating room in good condition. Will Quintero M.D. DR: SEDA JOB#: [id number] CC:
[2019-05-07] MEDS: Ampicillin/Sulbactam Sod 3 GM in NS 110 ML IV SCH ×2 (17:51→23:38)
[2019-05-07] MEDS ORDERED: PCA Education Pamphlet MISC ONE (18:00)
[2019-05-07] MEDS: PCA shift volume MISC SCH (19:00)
[2019-05-07] MEDS: Dyna-Hex 2% Top Sol 2oz TOPIC SCH (20:33)
[2019-05-07] MEDS: Morphine Sulfate 4mg/ml Inj (IV USE ONLY) IV PRN (20:33)
[2019-05-08] VITALS: BP 133/70
[2019-05-08] MEDS: 1/2NS w/KCl 20mEq 1000ml 1,000 ML IV SCH ×3 (00:06→20:12)
[2019-05-08] MEDS: Morphine Sulfate 4mg/ml Inj (IV USE ONLY) IV PRN (01:41)
[2019-05-08] MEDS: PCA Morphine 1mg/ml 30 ML IV PRN ×2 (02:50→15:09)
[2019-05-08 04:00] VITALS: BP 127/71
[2019-05-08] MEDS: Ampicillin/Sulbactam Sod 3 GM in NS 110 ML IV SCH ×4 (05:43→23:40)
[2019-05-08 06:03] LABS: BASOPHILS % (AUTO) 0.5 % (0.0-2.0); EOSINOPHILS % (AUTO) 0.1 % (0.0-3.0); HEMATOCRIT 37.1 % (42.0-52.0); HEMOGLOBIN 12.1 G/DL (14.2-18.0); LYMPHOCYTES % (AUTO) 8.2 % (20.0-45.0); MEAN CORPUSCULAR VOLUME 88 FL (80-99); MONOCYTES % (AUTO) 6.8 % (1.0-10.0); NEUTROPHILS % (AUTO) 84.4 % (45.0-75.0); PLATELET COUNT 211 K/UL (150-450); RED BLOOD COUNT 4.22 M/UL (4.70-6.10); RED CELL DISTRIBUTION WIDTH 11.9 % (11.6-14.8); WHITE BLOOD COUNT 17.2 K/UL (4.8-10.8)
[2019-05-08 06:40] LABS: ALANINE AMINOTRANSFERASE 19 U/L (12-78); ALBUMIN 2.9 G/DL (3.4-5.0); ALKALINE PHOSPHATASE 46 U/L (46-116); ANION GAP 9 mmol/L (5-15); ASPARTATE AMINO TRANSFERASE 25 U/L (15-37); BILIRUBIN,TOTAL 0.6 MG/DL (0.2-1.0); BLOOD UREA NITROGEN 6 mg/dL (7-18); CALCIUM 8.5 MG/DL (8.5-10.1); CARBON DIOXIDE 26 MMOL/L (21-32); CHLORIDE 107 MMOL/L (98-107); CREATININE 0.7 MG/DL (0.55-1.30); POTASSIUM 3.7 MMOL/L (3.5-5.1); SODIUM 142 MMOL/L (136-145)
[2019-05-08] MEDS: PCA shift volume MISC SCH ×2 (07:10→19:29)
--- NOTE | 2019-05-08 07:49 | General Progress Note ---
Progress Note Progress Note AVSS Comfortable with Morphine HOP WEIGHER Chest clear decreased expansion Cor reg rhythm Abdomen soft, mildly distended, incisions clean, stoma pink. Bartolome - small amount serosang WBC 17,200 Hgb 12.1 (stable) CMP okay except albumin 2.9 (was 3.4 pre-op after hydration) Imp. Ileus Atelectasis Moderate protein malnutrition - present on admission Plan: npo, gastrostomy and Pablo pouch catheters to drainage continue Gomez (pelvic dissection) TPN ambulate as tolerated with assistance Will Quintero MD May 08, 2019 07:48
[2019-05-08 08:00] VITALS: BP 108/67
[2019-05-08] MEDS: DULoxetine 30mg cap ORAL SCH (09:19)
[2019-05-08] MEDS: Acyclovir 200mg Cap ORAL SCH (09:19)
[2019-05-08 12:00] VITALS: BP 107/53
[2019-05-08 16:00] VITALS: BP 130/71
[2019-05-08 20:00] VITALS: BP 127/56
[2019-05-08] MEDS ORDERED: Dextrose 10% 1,000 ML IV PRN (20:00)
[2019-05-08] MEDS: Fat Emulsion Iv 20% 240 ML in Tpn 1,560 ML IV SCH (20:11)
[2019-05-08] MEDS: Dyna-Hex 2% Top Sol 2oz TOPIC SCH (20:14)
[2019-05-08] MEDS ORDERED: Fat Emulsion Iv 20% 250 ML IV SCH (21:00)
[2019-05-08] MEDS: NovoLOG Insulin Flexpen SUBQ SCH (23:41)
[2019-05-09] VITALS: BP 111/62
[2019-05-09] MEDS: LORazepam 1mg tab SL PRN (00:22)
[2019-05-09 04:00] VITALS: BP 126/70
[2019-05-09] MEDS: PCA Morphine 1mg/ml 30 ML IV PRN ×2 (04:09→17:56)
[2019-05-09 05:44] LABS: BASOPHILS % (AUTO) 0.3 % (0.0-2.0); EOSINOPHILS % (AUTO) 3.7 % (0.0-3.0); HEMATOCRIT 33.7 % (42.0-52.0); LYMPHOCYTES % (AUTO) 11.3 % (20.0-45.0); MEAN CORPUSCULAR VOLUME 88 FL (80-99); MONOCYTES % (AUTO) 7.1 % (1.0-10.0); NEUTROPHILS % (AUTO) 77.6 % (45.0-75.0); PLATELET COUNT 187 K/UL (150-450); RED BLOOD COUNT 3.84 M/UL (4.70-6.10); WHITE BLOOD COUNT 14.8 K/UL (4.8-10.8)
[2019-05-09] MEDS: NovoLOG Insulin Flexpen SUBQ SCH ×4 (05:59→23:47)
[2019-05-09] MEDS: Ampicillin/Sulbactam Sod 3 GM in NS 110 ML IV SCH ×4 (06:04→23:35)
[2019-05-09] MEDS: Morphine Sulfate 4mg/ml Inj (IV USE ONLY) IV PRN ×2 (06:04→10:15)
[2019-05-09 06:14] LABS: ALANINE AMINOTRANSFERASE 16 U/L (12-78); ALBUMIN 2.6 G/DL (3.4-5.0); ALBUMIN/GLOBULIN RATIO 0.8 (1.0-2.7); ALKALINE PHOSPHATASE 38 U/L (46-116); ANION GAP 4 mmol/L (5-15); ASPARTATE AMINO TRANSFERASE 24 U/L (15-37); BILIRUBIN,TOTAL 0.5 MG/DL (0.2-1.0); BLOOD UREA NITROGEN 10 mg/dL (7-18); CALCIUM 8.8 MG/DL (8.5-10.1); CARBON DIOXIDE 30 MMOL/L (21-32); CHLORIDE 104 MMOL/L (98-107); CREATININE 0.6 MG/DL (0.55-1.30); PHOSPHORUS 2.1 MG/DL (2.5-4.9); POTASSIUM 4.5 MMOL/L (3.5-5.1); SODIUM 137 MMOL/L (136-145)
[2019-05-09] MEDS: PCA shift volume MISC SCH ×2 (07:27→19:29)
[2019-05-09 08:00] VITALS: BP 130/63
[2019-05-09] MEDS: DULoxetine 30mg cap ORAL SCH (08:30)
[2019-05-09] MEDS: Acyclovir 200mg Cap ORAL SCH (08:30)
--- NOTE | 2019-05-09 10:18 | 48 Hour Post Anesthesia Eval ---
Post Anesthesia Evaluation Procedure: Ex laparotomy, creation of continent pouch Date of Evaluation: May 08, 2019 Time of Evaluation: 12:00 Blood Pressure Systolic: 107 0: 53 Pulse Rate: 80 Respiratory Rate: 18 Temperature (Fahrenheit): 98.7 O2 Sat by Pulse Oximetry: 93 Airway: patent Nausea: No Vomiting: No Hydration Status: adequate Cardiopulmonary Status: at baseline Mental Status/LOC: patient returned to baseline Post-Anesthesia Complications: 0 Follow-up care needed: N/A - further care as per primary team Inge Bhakta MD May 09, 2019 10:18
[2019-05-09 12:00] VITALS: BP 108/69
--- NOTE | 2019-05-09 14:05 | General Progress Note ---
Progress Note Progress Note AVSS Able to ambulate in hallways. Good IS effort - chest clear Abdomen soft, mild distention, incisions clean, stoma pink Urine 2225 Gastrostomy 265 bilious BCIR ileo small amount serosang WBC down 14,800 Hgb 11 Glu 173 (on TPN) Phosphorus low 2.1 Mg 1.8 Imp. Stable with ileus, malnutrition Plan: continue npo, TPN, Gomez, SNAG GRINDER Will Quintero MD May 09, 2019 14:05
[2019-05-09] MEDS ORDERED: Rate Change PCA 1 Each MISC PRN (14:15)
[2019-05-09] MEDS ORDERED: DiphenhydrAMINE 50mg/ml Inj IVP PRN (14:15)
[2019-05-09] MEDS ORDERED: Naloxone 0.4mg/ml Inj IVP PRN (14:15)
[2019-05-09] MEDS ORDERED: Morphine Sulfate 2mg/ml Inj(IV/IM USE ONLY) IVP PRN (14:15)
[2019-05-09] MEDS ORDERED: Potassium Phosphate 30 MM in NS 275 ML IV ONE ×2 (15:00→18:00)
[2019-05-09 16:00] VITALS: BP 101/58
[2019-05-09] MEDS: Dyna-Hex 2% Top Sol 2oz TOPIC SCH (19:44)
[2019-05-09] MEDS: Fat Emulsion Iv 20% 240 ML in Tpn 1,560 ML IV SCH (19:51)
[2019-05-09 20:00] VITALS: BP 110/59
[2019-05-09] MEDS: 1/2NS w/KCl 20mEq 1000ml 1,000 ML IV SCH (20:00)
[2019-05-10] VITALS: BP 125/72
[2019-05-10] MEDS: LORazepam 1mg tab SL PRN ×2 (00:19→23:56)
[2019-05-10] MEDS: Morphine Sulfate 4mg/ml Inj (IV USE ONLY) IV PRN ×4 (02:08→23:10)
[2019-05-10 04:45] VITALS: BP 110/68
[2019-05-10] MEDS: Ampicillin/Sulbactam Sod 3 GM in NS 110 ML IV SCH ×4 (05:21→23:57)
[2019-05-10 05:24] LABS: BASOPHILS % (AUTO) 0.5 % (0.0-2.0); EOSINOPHILS % (AUTO) 5.7 % (0.0-3.0); HEMATOCRIT 33.1 % (42.0-52.0); HEMOGLOBIN 10.6 G/DL (14.2-18.0); LYMPHOCYTES % (AUTO) 17.3 % (20.0-45.0); MEAN CORPUSCULAR VOLUME 88 FL (80-99); MONOCYTES % (AUTO) 8.3 % (1.0-10.0); NEUTROPHILS % (AUTO) 68.2 % (45.0-75.0); PLATELET COUNT 183 K/UL (150-450); RED BLOOD COUNT 3.77 M/UL (4.70-6.10); RED CELL DISTRIBUTION WIDTH 12.2 % (11.6-14.8); WHITE BLOOD COUNT 10.6 K/UL (4.8-10.8)
[2019-05-10 05:35] LABS: ANION GAP 2 mmol/L (5-15); BLOOD UREA NITROGEN 12 mg/dL (7-18); CALCIUM 8.6 MG/DL (8.5-10.1); CARBON DIOXIDE 33 MMOL/L (21-32); CHLORIDE 106 MMOL/L (98-107); CREATININE 0.6 MG/DL (0.55-1.30); PHOSPHORUS 3.6 MG/DL (2.5-4.9); POTASSIUM 3.6 MMOL/L (3.5-5.1); SODIUM 141 MMOL/L (136-145)
[2019-05-10] MEDS: NovoLOG Insulin Flexpen SUBQ SCH ×3 (06:04→17:03)
[2019-05-10] MEDS: 1/2NS w/KCl 20mEq 1000ml 1,000 ML IV SCH (06:12)
[2019-05-10] MEDS: PCA shift volume MISC SCH ×2 (07:04→19:03)
[2019-05-10] MEDS: PCA Morphine 1mg/ml 30 ML IV PRN (07:55)
[2019-05-10] MEDS: DULoxetine 30mg cap ORAL SCH (07:56)
[2019-05-10] MEDS: Acyclovir 200mg Cap ORAL SCH (07:56)
[2019-05-10 08:00] VITALS: BP 113/69
--- NOTE | 2019-05-10 09:10 | General Progress Note ---
Progress Note Progress Note AVSS Feels well. Ambulated twice yesterday. Abdomen distended, soft, incisions clean, stoma pink. Bartolome - scant serosang Urine 2200 Gastrostomy 1040 BCIR ileo 215 enteric WBC 10,600 Hgb 10.6 BMP,MG,P all wnl albumin 2.6 Iron 74 (50-175) Imp. Ileus Malnutrition anemia with pre-admission low normal serum iron Plan: continue npo, TPN, duval, antibiotics (clinical peritonitis due to bowel being open for a prolonged time during the surgery) Venofer 100mg IV QD x 5 Will Quintero MD May 10, 2019 09:10
[2019-05-10] MEDS ORDERED: PCA Morphine 1mg/ml 30 ML IV PRN (09:15)
[2019-05-10] MEDS ORDERED: Rate Change PCA 1 Each MISC PRN (09:15)
[2019-05-10] MEDS ORDERED: NS 500ML ONE (09:40)
[2019-05-10] MEDS ORDERED: NS Irrig 1000ml ONE (09:40)
[2019-05-10 12:00] VITALS: BP 111/61
[2019-05-10 16:00] VITALS: BP 110/64
[2019-05-10 20:00] VITALS: BP 128/62
[2019-05-10] MEDS: Dyna-Hex 2% Top Sol 2oz TOPIC SCH (20:02)
[2019-05-10] MEDS: Fat Emulsion Iv 20% 240 ML in Tpn 1,560 ML IV SCH (20:11)
[2019-05-10] MEDS: Iron Sucrose 100 MG in NS 55 ML IV SCH (20:48)
[2019-05-11] VITALS: BP 121/70
[2019-05-11] MEDS: NovoLOG Insulin Flexpen SUBQ SCH ×5 (00:12→23:56)
[2019-05-11 05:01] LABS: BASOPHILS % (AUTO) 0.6 % (0.0-2.0); EOSINOPHILS % (AUTO) 7.4 % (0.0-3.0); HEMATOCRIT 34.3 % (42.0-52.0); HEMOGLOBIN 11.1 G/DL (14.2-18.0); LYMPHOCYTES % (AUTO) 18.6 % (20.0-45.0); MEAN CORPUSCULAR VOLUME 87 FL (80-99); MONOCYTES % (AUTO) 7.3 % (1.0-10.0); NEUTROPHILS % (AUTO) 66.2 % (45.0-75.0); PLATELET COUNT 217 K/UL (150-450); RED BLOOD COUNT 3.94 M/UL (4.70-6.10); RED CELL DISTRIBUTION WIDTH 11.8 % (11.6-14.8); WHITE BLOOD COUNT 9.6 K/UL (4.8-10.8)
[2019-05-11 05:30] LABS: ALANINE AMINOTRANSFERASE 12 U/L (12-78); ALBUMIN 2.6 G/DL (3.4-5.0); ALBUMIN/GLOBULIN RATIO 0.8 (1.0-2.7); ALKALINE PHOSPHATASE 53 U/L (46-116); ANION GAP 1 mmol/L (5-15); ASPARTATE AMINO TRANSFERASE 14 U/L (15-37); BILIRUBIN,TOTAL 0.4 MG/DL (0.2-1.0); BLOOD UREA NITROGEN 11 mg/dL (7-18); CARBON DIOXIDE 34 MMOL/L (21-32); CHLORIDE 104 MMOL/L (98-107); CREATININE 0.7 MG/DL (0.55-1.30); POTASSIUM 4.3 MMOL/L (3.5-5.1); SODIUM 139 MMOL/L (136-145)
[2019-05-11 06:00] VITALS: BP 123/72
[2019-05-11] MEDS: Ampicillin/Sulbactam Sod 3 GM in NS 110 ML IV SCH ×4 (06:05→23:48)
[2019-05-11] MEDS: PCA shift volume MISC SCH ×2 (07:22→19:00)
[2019-05-11 08:00] VITALS: BP 104/67
[2019-05-11] MEDS ORDERED: PCA Morphine 1mg/ml 30 ML IV PRN ×2 (09:15→09:40)
[2019-05-11] MEDS ORDERED: Rate Change PCA 1 Each MISC PRN (09:15)
--- NOTE | 2019-05-11 09:41 | General Progress Note ---
Progress Note Progress Note AVSS Doing well on Morphine TRAFFIC CHECKER (history of long-term hydrocodone usage). Ambulates well in hallways Abdomen still mildly distended, incisions clean [place] - nil Urine 2500 Gastrostomy 790 BCIR ileo 140 WBC 9600 Hgb 11.1 BUN 11 Cr 0.7 Albumin 2.6 Imp. Persistent ileus Plan: continue npo, TPN d/c continuous basal infusion of TRAFFIC CHECKER Will Quintero MD May 11, 2019 09:41
[2019-05-11] MEDS: Acyclovir 200mg Cap ORAL SCH (09:45)
[2019-05-11] MEDS: DULoxetine 30mg cap ORAL SCH (09:45)
[2019-05-11] MEDS: Morphine Sulfate 4mg/ml Inj (IV USE ONLY) IV PRN ×2 (10:57→20:28)
[2019-05-11 12:00] VITALS: BP 108/65
[2019-05-11] MEDS ORDERED: NS Irrig 1000ml ONE (14:01)
[2019-05-11] MEDS ORDERED: Tubing IV Secondary IV ONE (14:01)
[2019-05-11 16:00] VITALS: BP 106/61
[2019-05-11 20:00] VITALS: BP 115/66
[2019-05-11] MEDS: Fat Emulsion Iv 20% 240 ML in Tpn 1,560 ML IV SCH (20:02)
[2019-05-11] MEDS: Dyna-Hex 2% Top Sol 2oz TOPIC SCH (20:02)
[2019-05-11] MEDS: 1/2NS w/KCl 20mEq 1000ml 1,000 ML IV SCH (20:13)
[2019-05-11] MEDS: Iron Sucrose 100 MG in NS 55 ML IV SCH (20:28)
[2019-05-12] VITALS: BP 126/79
[2019-05-12] MEDS: LORazepam 1mg tab SL PRN
[2019-05-12 04:00] VITALS: BP 111/67
[2019-05-12 05:23] LABS: BASOPHILS % (AUTO) 0.7 % (0.0-2.0); EOSINOPHILS % (AUTO) 9.2 % (0.0-3.0); HEMATOCRIT 34.9 % (42.0-52.0); HEMOGLOBIN 11.3 G/DL (14.2-18.0); LYMPHOCYTES % (AUTO) 18.3 % (20.0-45.0); MEAN CORPUSCULAR VOLUME 88 FL (80-99); MONOCYTES % (AUTO) 8.7 % (1.0-10.0); NEUTROPHILS % (AUTO) 63.1 % (45.0-75.0); PLATELET COUNT 260 K/UL (150-450); RED BLOOD COUNT 3.98 M/UL (4.70-6.10); RED CELL DISTRIBUTION WIDTH 11.9 % (11.6-14.8); WHITE BLOOD COUNT 8.9 K/UL (4.8-10.8)
[2019-05-12 05:45] LABS: ANION GAP 3 mmol/L (5-15); BLOOD UREA NITROGEN 11 mg/dL (7-18); CALCIUM 8.9 MG/DL (8.5-10.1); CARBON DIOXIDE 33 MMOL/L (21-32); CHLORIDE 99 MMOL/L (98-107); CREATININE 0.6 MG/DL (0.55-1.30); PHOSPHORUS 3.9 MG/DL (2.5-4.9); SODIUM 135 MMOL/L (136-145)
[2019-05-12] MEDS: Ampicillin/Sulbactam Sod 3 GM in NS 110 ML IV SCH (05:49)
[2019-05-12] MEDS: NovoLOG Insulin Flexpen SUBQ SCH ×3 (05:56→18:01)
[2019-05-12] MEDS: Morphine Sulfate 4mg/ml Inj (IV USE ONLY) IV PRN ×3 (06:13→18:39)
[2019-05-12] MEDS: PCA shift volume MISC SCH ×2 (07:00→19:48)
[2019-05-12 08:00] VITALS: BP 121/74
--- NOTE | 2019-05-12 08:53 | General Progress Note ---
Progress Note Progress Note AVSS Tolerated d/c of basal infusion of [employer] Abdomen still with mild soft distention, healing nicely Urine 3150 Gastrostomy 665 BCIR ileo only 125 (scant overnight) Labs all stable with Mg and P both wnl Imp. Ileus Plan: D/C urinary Gomez D/C Unasyn and flagyl STAT KUB XRay continue npo and TPN Will Quintero MD May 12, 2019 08:53
[2019-05-12] MEDS: DULoxetine 30mg cap ORAL SCH (09:17)
[2019-05-12] MEDS: Acyclovir 200mg Cap ORAL SCH (09:17)
--- NOTE | 2019-05-12 10:02 | Diagnostic Imaging Report ---
Indication: Abdomen bloating Technique: Supine view of the abdomen Comparison: none Findings: There are midline skin mayela and right upper quadrant skin mayela. Stable lines in the pelvis indicate continent ileostomy. Mildly dilated small bowel loops are seen in the left mid abdomen. No masses or unusual calcifications Impression: Postoperative changes, as described Mildly dilated left mid abdominal small bowel loops. Given evidence of recent surgery, most likely on the basis of postoperative ileus, although the possibility of small bowel obstruction should also be considered.
[2019-05-12 12:00] VITALS: BP 117/63
[2019-05-12 16:00] VITALS: BP 124/76
[2019-05-12 19:59] VITALS: BP 124/68
[2019-05-12] MEDS: Iron Sucrose 100 MG in NS 55 ML IV SCH (20:24)
[2019-05-12] MEDS: Fat Emulsion Iv 20% 240 ML in Tpn 1,560 ML IV SCH (20:25)
[2019-05-12] MEDS: Dyna-Hex 2% Top Sol 2oz TOPIC SCH (20:25)
[2019-05-12] MEDS: 1/2NS w/KCl 20mEq 1000ml 1,000 ML IV SCH (20:26)
[2019-05-12] MEDS: HYDROcodone/Acetamin 10/325 tab ORAL PRN (21:29)
[2019-05-13] VITALS: BP 121/70
[2019-05-13] MEDS: NovoLOG Insulin Flexpen SUBQ SCH ×4 (00:02→18:29)
[2019-05-13] MEDS: HYDROcodone/Acetamin 10/325 tab ORAL PRN ×5 (01:29→20:32)
[2019-05-13 04:00] VITALS: BP 122/69
[2019-05-13 05:23] LABS: BASOPHILS % (AUTO) 0.4 % (0.0-2.0); EOSINOPHILS % (AUTO) 11.3 % (0.0-3.0); HEMATOCRIT 36.8 % (42.0-52.0); HEMOGLOBIN 11.8 G/DL (14.2-18.0); LYMPHOCYTES % (AUTO) 18.2 % (20.0-45.0); MEAN CORPUSCULAR VOLUME 87 FL (80-99); MONOCYTES % (AUTO) 8.7 % (1.0-10.0); NEUTROPHILS % (AUTO) 61.4 % (45.0-75.0); PLATELET COUNT 287 K/UL (150-450); RED BLOOD COUNT 4.21 M/UL (4.70-6.10); RED CELL DISTRIBUTION WIDTH 11.7 % (11.6-14.8); WHITE BLOOD COUNT 9.8 K/UL (4.8-10.8)
[2019-05-13 05:42] LABS: ANION GAP 5 mmol/L (5-15); BLOOD UREA NITROGEN 15 mg/dL (7-18); CARBON DIOXIDE 30 MMOL/L (21-32); CHLORIDE 101 MMOL/L (98-107); CREATININE 0.7 MG/DL (0.55-1.30); POTASSIUM 3.9 MMOL/L (3.5-5.1); SODIUM 136 MMOL/L (136-145)
[2019-05-13] MEDS: PCA shift volume MISC SCH (07:41)
[2019-05-13 08:00] VITALS: BP 118/75
[2019-05-13] MEDS ORDERED: Acetaminophen 650mg/20.3ml ORAL PRN (09:00)
[2019-05-13] MEDS: Acyclovir 200mg Cap ORAL SCH (09:06)
[2019-05-13] MEDS: DULoxetine 30mg cap ORAL SCH (09:06)
[2019-05-13] MEDS ORDERED: Rate Change PCA 1 Each MISC PRN (10:15)
[2019-05-13] MEDS ORDERED: Morphine Sulfate 2mg/ml Inj(IV/IM USE ONLY) IVP PRN (10:15)
[2019-05-13] MEDS ORDERED: LORazepam 1mg tab ORAL PRN (10:15)
[2019-05-13] MEDS ORDERED: PCA Education Pamphlet MISC ONE (10:15)
[2019-05-13] MEDS ORDERED: DiphenhydrAMINE 50mg/ml Inj IVP PRN (10:15)
[2019-05-13] MEDS ORDERED: PCA Morphine 1mg/ml 30 ML IV PRN (10:15)
[2019-05-13] MEDS ORDERED: Naloxone 0.4mg/ml Inj IVP PRN (10:15)
[2019-05-13] MEDS ORDERED: Morphine Sulfate 4mg/ml Inj (IV USE ONLY) IV PRN (10:15)
[2019-05-13 11:35] VITALS: BP 126/69
[2019-05-13 16:00] VITALS: BP 108/66
[2019-05-13] MEDS: 1/2NS w/KCl 20mEq 1000ml 1,000 ML IV SCH (16:07)
[2019-05-13] MEDS ORDERED: LORazepam 1mg tab SL PRN ×2 (16:08)
--- NOTE | 2019-05-13 16:18 | General Progress Note ---
Progress Note Progress Note AVSS doing well. KUB yesterday showed mildly dilated small bowel loops left side of abdomen. Now abdomen is soft, flat, improved Urine 2550 Gastrostomy 640 BCIR ileo 245 (up) Hgb 11.8 (up) BUN up slightly Imp. Ileus resolving Plan: start Clear liquid diet in AM d/c [employer] - using [place] 10/325 q4h prn - his pre-admission med schedule for years continue TPN until diet can be advanced to BCIR diet Will Quintero MD May 13, 2019 16:18
[2019-05-13] MEDS ORDERED: PCA shift volume MISC SCH (19:00)
[2019-05-13 20:00] VITALS: BP 101/64
[2019-05-13] MEDS: Dyna-Hex 2% Top Sol 2oz TOPIC SCH (20:13)
[2019-05-13] MEDS: Fat Emulsion Iv 20% 240 ML in Tpn 1,560 ML IV SCH (20:13)
[2019-05-13] MEDS: Iron Sucrose 100 MG in NS 55 ML IV SCH (20:14)
[2019-05-14] VITALS: BP 112/65
[2019-05-14] MEDS: NovoLOG Insulin Flexpen SUBQ SCH ×5 (00:04→23:54)
[2019-05-14] MEDS: HYDROcodone/Acetamin 10/325 tab ORAL PRN ×6 (02:47→23:04)
[2019-05-14] MEDS: 1/2NS w/KCl 20mEq 1000ml 1,000 ML IV SCH (02:50)
[2019-05-14 04:00] VITALS: BP 110/68
[2019-05-14 05:49] LABS: ALANINE AMINOTRANSFERASE 41 U/L (12-78); ALBUMIN 2.8 G/DL (3.4-5.0); ALBUMIN/GLOBULIN RATIO 0.7 (1.0-2.7); ALKALINE PHOSPHATASE 107 U/L (46-116); ANION GAP 6 mmol/L (5-15); BILIRUBIN,TOTAL 0.4 MG/DL (0.2-1.0); BLOOD UREA NITROGEN 21 mg/dL (7-18); CALCIUM 9.1 MG/DL (8.5-10.1); CARBON DIOXIDE 29 MMOL/L (21-32); CHLORIDE 101 MMOL/L (98-107); CREATININE 0.7 MG/DL (0.55-1.30); PHOSPHORUS 3.9 MG/DL (2.5-4.9); POTASSIUM 4.1 MMOL/L (3.5-5.1); SODIUM 136 MMOL/L (136-145)
[2019-05-14 06:29] LABS: ASPARTATE AMINO TRANSFERASE 53 U/L (15-37)
[2019-05-14 07:58] VITALS: BP 123/66
[2019-05-14] MEDS: DULoxetine 30mg cap ORAL SCH (08:52)
[2019-05-14] MEDS: Acyclovir 200mg Cap ORAL SCH (08:52)
[2019-05-14] MEDS ORDERED: HYDROcodone/Acetamin 10/325 tab ORAL SCH (11:00)
[2019-05-14 12:00] VITALS: BP 97/66
[2019-05-14 16:00] VITALS: BP 116/64
[2019-05-14] MEDS ORDERED: DiphenhydrAMINE 50mg/ml Inj IVP PRN (16:15)
--- NOTE | 2019-05-14 16:26 | General Progress Note ---
Progress Note Progress Note AVSS Tolerating clear liquid diet with gastrostomy to continuous drainage Abdomen slightly distended, healing nicely Urine 1850 Gastrostomy 1215 BCIR ileo 1000 BUN up 21 Cr 0.7 albumin 2.8 Imp. Slowly improving Plan: continue TPN maintain continuous drainage of Pablo Pouch in AM begin Gastrostomy 3:3 protocol and continue clear liquid diet f/u labs Will Quintero MD May 14, 2019 16:26
[2019-05-14 20:00] VITALS: BP 121/66
[2019-05-14] MEDS: Dyna-Hex 2% Top Sol 2oz TOPIC SCH (20:13)
[2019-05-14] MEDS: Fat Emulsion Iv 20% 240 ML in Tpn 1,560 ML IV SCH (20:14)
[2019-05-14] MEDS: Iron Sucrose 100 MG in NS 55 ML IV SCH (21:09)
[2019-05-15] VITALS: BP 113/62
[2019-05-15] MEDS: HYDROcodone/Acetamin 10/325 tab ORAL PRN ×5 (04:08→21:34)
[2019-05-15 05:00] VITALS: BP 124/65
[2019-05-15] MEDS: 1/2NS w/KCl 20mEq 1000ml 1,000 ML IV SCH ×2 (05:14→18:00)
[2019-05-15 05:26] LABS: BASOPHILS % (AUTO) 0.8 % (0.0-2.0); HEMATOCRIT 37.8 % (42.0-52.0); HEMOGLOBIN 12.4 G/DL (14.2-18.0); LYMPHOCYTES % (AUTO) 20.4 % (20.0-45.0); MEAN CORPUSCULAR VOLUME 89 FL (80-99); MONOCYTES % (AUTO) 9.2 % (1.0-10.0); NEUTROPHILS % (AUTO) 58.6 % (45.0-75.0); PLATELET COUNT 352 K/UL (150-450); RED BLOOD COUNT 4.27 M/UL (4.70-6.10); RED CELL DISTRIBUTION WIDTH 12.1 % (11.6-14.8); WHITE BLOOD COUNT 11.7 K/UL (4.8-10.8)
[2019-05-15 05:50] LABS: ALANINE AMINOTRANSFERASE 33 U/L (12-78); ALBUMIN 2.9 G/DL (3.4-5.0); ALBUMIN/GLOBULIN RATIO 0.7 (1.0-2.7); ALKALINE PHOSPHATASE 95 U/L (46-116); ANION GAP 5 mmol/L (5-15); ASPARTATE AMINO TRANSFERASE 27 U/L (15-37); BILIRUBIN,TOTAL 0.4 MG/DL (0.2-1.0); BLOOD UREA NITROGEN 15 mg/dL (7-18); CALCIUM 9.4 MG/DL (8.5-10.1); CARBON DIOXIDE 31 MMOL/L (21-32); CHLORIDE 102 MMOL/L (98-107); CREATININE 0.7 MG/DL (0.55-1.30); POTASSIUM 4.4 MMOL/L (3.5-5.1); SODIUM 138 MMOL/L (136-145)
[2019-05-15] MEDS: NovoLOG Insulin Flexpen SUBQ SCH ×3 (06:12→16:59)
[2019-05-15 08:00] VITALS: BP 119/66
[2019-05-15] MEDS: Acyclovir 200mg Cap ORAL SCH (08:27)
[2019-05-15] MEDS: DULoxetine 30mg cap ORAL SCH (08:28)
--- NOTE | 2019-05-15 10:14 | General Progress Note ---
Progress Note Progress Note AVSS Tolerating clear liquid diet and TPN Abdomen soft, flat, healing well Urine 2850 Gastrostomy 1690 BCIR ileo 1650 WBC 11,700 up Hgb 12.4 up BUN down 15 Albumin 2.9 Imp. Improving Plan: Gastrostomy 3:3 protocol continue clear liquids and TPN f/u labs Will Quintero MD May 15, 2019 10:14
[2019-05-15 12:00] VITALS: BP 123/66
[2019-05-15 15:56] VITALS: BP 118/63
[2019-05-15] MEDS: Dyna-Hex 2% Top Sol 2oz TOPIC SCH (19:59)
[2019-05-15 20:00] VITALS: BP 121/64
[2019-05-15] MEDS ORDERED: Phytonadione 10 mg/mL 1ml amp SUBQ SCH (20:00)
[2019-05-15] MEDS: Fat Emulsion Iv 20% 240 ML in Tpn 1,560 ML IV SCH (20:01)
[2019-05-16] VITALS: BP 109/75
[2019-05-16] MEDS: HYDROcodone/Acetamin 10/325 tab ORAL PRN ×5 (01:27→20:35)
[2019-05-16 04:00] VITALS: BP 111/77
[2019-05-16] MEDS: NovoLOG Insulin Flexpen SUBQ SCH ×4 (05:21→18:49)
[2019-05-16 05:43] LABS: BASOPHILS % (AUTO) 1.3 % (0.0-2.0); EOSINOPHILS % (AUTO) 11.5 % (0.0-3.0); HEMATOCRIT 38.8 % (42.0-52.0); HEMOGLOBIN 12.5 G/DL (14.2-18.0); LYMPHOCYTES % (AUTO) 23.1 % (20.0-45.0); MEAN CORPUSCULAR VOLUME 88 FL (80-99); MONOCYTES % (AUTO) 9.8 % (1.0-10.0); NEUTROPHILS % (AUTO) 54.3 % (45.0-75.0); PLATELET COUNT 359 K/UL (150-450); RED BLOOD COUNT 4.42 M/UL (4.70-6.10); RED CELL DISTRIBUTION WIDTH 12.8 % (11.6-14.8); WHITE BLOOD COUNT 12.4 K/UL (4.8-10.8)
[2019-05-16 06:03] LABS: ANION GAP 5 mmol/L (5-15); BLOOD UREA NITROGEN 14 mg/dL (7-18); CALCIUM 9.3 MG/DL (8.5-10.1); CARBON DIOXIDE 26 MMOL/L (21-32); CHLORIDE 103 MMOL/L (98-107); CREATININE 0.7 MG/DL (0.55-1.30); POTASSIUM 4.2 MMOL/L (3.5-5.1); SODIUM 134 MMOL/L (136-145)
[2019-05-16 08:00] VITALS: BP 116/67
[2019-05-16] MEDS: Acyclovir 200mg Cap ORAL SCH (08:53)
[2019-05-16] MEDS: DULoxetine 30mg cap ORAL SCH (08:53)
[2019-05-16] MEDS ORDERED: DiphenhydrAMINE 50mg/ml Inj IVP PRN (09:00)
--- NOTE | 2019-05-16 09:07 | General Progress Note ---
Progress Note Progress Note AVSS Tolerated clear liquids and gastrostomy 3:3 Abdomen soft, healing nicely WBC up 12,400 BUN down 14 Cr 0.7 Urine 2750 gastrostomy 355 BCIR ileo 2270 C.diff pending Imp. Improved but mild leukocytosis Plan: U/A and urine culture BCIR low residue diet Gastrostomy 5:1 protocol continue TPN maintain continuous decompression of Pablo continent ileostomy pouch Will Quintero MD May 16, 2019 09:07
[2019-05-16 10:24] LABS: APPEARANCE,URINE CLEAR; BILIRUBIN, URINE NEGATIVE (NEGATIVE); COLOR,URINE PALE YELLOW; GLUCOSE, URINE (UA) NEGATIVE (NEGATIVE); KETONES,URINE NEGATIVE (NEGATIVE); LEUKOCYTE ESTERASE ,URINE NEGATIVE (NEGATIVE); NITRITE,URINE NEGATIVE (NEGATIVE); PH,URINE 7 (4.5-8.0); PROTEIN,URINE NEGATIVE (NEGATIVE); UROBILINOGEN,URINE NORMAL MG/DL (0.0-1.0)
[2019-05-16 12:00] VITALS: BP 104/63
[2019-05-16] MEDS: 1/2NS w/KCl 20mEq 1000ml 1,000 ML IV SCH ×2 (13:35→19:00)
[2019-05-16 16:00] VITALS: BP 115/67
[2019-05-16 19:00] VITALS: BP 112/62
[2019-05-16] MEDS: Fat Emulsion Iv 20% 240 ML in Tpn 1,560 ML IV SCH (20:16)
[2019-05-16] MEDS: Dyna-Hex 2% Top Sol 2oz TOPIC SCH (20:17)
[2019-05-16] MEDS ORDERED: Tubing IV Secondary IV ONE (22:21)
[2019-05-16] MEDS ORDERED: NS Irrig 1000ml ONE (22:21)
[2019-05-16] MEDS ORDERED: NS 500ML ONE (22:21)
[2019-05-17] VITALS (7 sets, daily range): BP systolic 103–121; BP diastolic 61–69
[2019-05-17] MEDS: NovoLOG Insulin Flexpen SUBQ SCH ×4 (00:27→16:58)
[2019-05-17] MEDS: HYDROcodone/Acetamin 10/325 tab ORAL PRN ×5 (00:44→21:12)
[2019-05-17] MEDS: Ascorbic Acid 500mg tab ORAL PRN ×2 (00:44→18:20)
[2019-05-17 05:54] LABS: BASOPHILS % (AUTO) 0.8 % (0.0-2.0); EOSINOPHILS % (AUTO) 9.6 % (0.0-3.0); HEMATOCRIT 38.8 % (42.0-52.0); HEMOGLOBIN 12.5 G/DL (14.2-18.0); LYMPHOCYTES % (AUTO) 21.4 % (20.0-45.0); MEAN CORPUSCULAR VOLUME 89 FL (80-99); MONOCYTES % (AUTO) 10.4 % (1.0-10.0); NEUTROPHILS % (AUTO) 57.9 % (45.0-75.0); PLATELET COUNT 390 K/UL (150-450); RED BLOOD COUNT 4.34 M/UL (4.70-6.10); RED CELL DISTRIBUTION WIDTH 12.4 % (11.6-14.8)
[2019-05-17] MEDS: 1/2NS w/KCl 20mEq 1000ml 1,000 ML IV SCH (06:04)
[2019-05-17 06:19] LABS: ALANINE AMINOTRANSFERASE 25 U/L (12-78); ALBUMIN 2.8 G/DL (3.4-5.0); ALBUMIN/GLOBULIN RATIO 0.7 (1.0-2.7); ALKALINE PHOSPHATASE 92 U/L (46-116); ANION GAP 9 mmol/L (5-15); ASPARTATE AMINO TRANSFERASE 20 U/L (15-37); BILIRUBIN,TOTAL 0.3 MG/DL (0.2-1.0); BLOOD UREA NITROGEN 23 mg/dL (7-18); CALCIUM 9.2 MG/DL (8.5-10.1); CARBON DIOXIDE 25 MMOL/L (21-32); CHLORIDE 102 MMOL/L (98-107); CREATININE 0.9 MG/DL (0.55-1.30); POTASSIUM 4.3 MMOL/L (3.5-5.1); SODIUM 136 MMOL/L (136-145)
--- NOTE | 2019-05-17 08:50 | General Progress Note ---
Progress Note Progress Note AVSS Tolerated BCIR diet and gastrostomy 5:1. Thick ileo effluent Abdomen soft, non-tender, healing nicely. [place] - nil WBC up 14,000 BUN 23 U/A - no infection. culture pending Imp. Improving but leukocytosis ? etiology Plan: plug gastrostomy continuously continue TPN f/u labs - if WBC rising will need CT scan abd+pelvis with contrast Will Quintero MD May 17, 2019 08:50
[2019-05-17] MEDS: Acyclovir 200mg Cap ORAL SCH (09:58)
[2019-05-17] MEDS: DULoxetine 30mg cap ORAL SCH (09:58)
[2019-05-17] MEDS ORDERED: Cathflo Alteplase 2mg Inj INJ ONE (10:15)
[2019-05-17] MEDS ORDERED: NS Irrig 1000ml ONE (15:51)
[2019-05-17] MEDS: Fat Emulsion Iv 20% 240 ML in Tpn 1,560 ML IV SCH (20:20)
[2019-05-17] MEDS: Dyna-Hex 2% Top Sol 2oz TOPIC SCH (20:20)
[2019-05-18 00:15] VITALS: BP 139/75
[2019-05-18] MEDS: NovoLOG Insulin Flexpen SUBQ SCH ×4 (00:20→18:07)
[2019-05-18 04:10] VITALS: BP 144/80
[2019-05-18 05:28] LABS: BASOPHILS % (AUTO) 1.3 % (0.0-2.0); HEMATOCRIT 42.4 % (42.0-52.0); HEMOGLOBIN 13.5 G/DL (14.2-18.0); LYMPHOCYTES % (AUTO) 19.2 % (20.0-45.0); MEAN CORPUSCULAR VOLUME 89 FL (80-99); NEUTROPHILS % (AUTO) 60.5 % (45.0-75.0); PLATELET COUNT 453 K/UL (150-450); RED BLOOD COUNT 4.77 M/UL (4.70-6.10); RED CELL DISTRIBUTION WIDTH 12.5 % (11.6-14.8); WHITE BLOOD COUNT 12.5 K/UL (4.8-10.8)
[2019-05-18] MEDS: HYDROcodone/Acetamin 10/325 tab ORAL PRN ×4 (05:34→19:59)
[2019-05-18 05:42] LABS: ANION GAP 9 mmol/L (5-15); BLOOD UREA NITROGEN 19 mg/dL (7-18); CALCIUM 9.4 MG/DL (8.5-10.1); CARBON DIOXIDE 25 MMOL/L (21-32); CHLORIDE 103 MMOL/L (98-107); CREATININE 0.8 MG/DL (0.55-1.30); POTASSIUM 4.1 MMOL/L (3.5-5.1); SODIUM 137 MMOL/L (136-145)
[2019-05-18 08:00] VITALS: BP 109/77
[2019-05-18] MEDS: Acyclovir 200mg Cap ORAL SCH (09:02)
[2019-05-18] MEDS: DULoxetine 30mg cap ORAL SCH (09:02)
[2019-05-18] MEDS ORDERED: LORazepam 1mg tab SL PRN ×2 (09:30)
--- NOTE | 2019-05-18 09:34 | General Progress Note ---
Progress Note Progress Note Doing well with BCIR diet. Occasional episodes of BCIR catheter getting plugged up but clears with irrigation ABdomen soft, healing nicely. Bartolome drain removed Urine 2850 BCIR ileo 2080 WBC down 12,500 Hgb up 13.5 Platelets up 453,000 BUN down 19 Imp. Improved Plan: Continue TPN another 24 hours Maintain continuous drainage of BCIR If WBC etc normal in AM will start BCIR self-intubations teaching and RN supervision - if abnormal will need CT scan abd+pelvis Will Quintero MD May 18, 2019 09:34
[2019-05-18 12:00] VITALS: BP 109/67
[2019-05-18 16:00] VITALS: BP 118/69
[2019-05-18 20:00] VITALS: BP 141/78
[2019-05-18] MEDS: Fat Emulsion Iv 20% 240 ML in Tpn 1,560 ML IV SCH (20:00)
[2019-05-18] MEDS: Dyna-Hex 2% Top Sol 2oz TOPIC SCH (20:13)
[2019-05-19] VITALS: BP 134/73
[2019-05-19] MEDS: HYDROcodone/Acetamin 10/325 tab ORAL PRN ×5 (00:06→20:15)
[2019-05-19] MEDS: NovoLOG Insulin Flexpen SUBQ SCH ×5 (00:19→23:10)
[2019-05-19 04:06] VITALS: BP 131/76
[2019-05-19 05:39] LABS: HEMATOCRIT 42.6 % (42.0-52.0); HEMOGLOBIN 13.7 G/DL (14.2-18.0); MEAN CORPUSCULAR VOLUME 89 FL (80-99); PLATELET COUNT 442 K/UL (150-450); RED BLOOD COUNT 4.78 M/UL (4.70-6.10); RED CELL DISTRIBUTION WIDTH 12.4 % (11.6-14.8)
[2019-05-19 05:41] LABS: WHITE BLOOD COUNT 23.2 K/UL (4.8-10.8)
[2019-05-19 05:50] LABS: ANION GAP 9 mmol/L (5-15); BLOOD UREA NITROGEN 26 mg/dL (7-18); CALCIUM 9.4 MG/DL (8.5-10.1); CARBON DIOXIDE 23 MMOL/L (21-32); CHLORIDE 102 MMOL/L (98-107); CREATININE 0.9 MG/DL (0.55-1.30); POTASSIUM 4.6 MMOL/L (3.5-5.1); SODIUM 134 MMOL/L (136-145)
[2019-05-19] MEDS: Dextrose 10% 1,000 ML IV SCH ×2 (07:07→23:11)
[2019-05-19] MEDS ORDERED: Isovue-300 100ml vial INJ PRN (07:30)
[2019-05-19 08:00] VITALS: BP 112/67
[2019-05-19] MEDS: Acyclovir 200mg Cap ORAL SCH (08:25)
[2019-05-19] MEDS: DULoxetine 30mg cap ORAL SCH (08:25)
[2019-05-19] MEDS: Piperacillin/Tazobactam 3.375 GM in NS 110 ML IVPB SCH ×3 (08:25→23:11)
[2019-05-19] MEDS ORDERED: NS Irrig 1000ml ONE (10:48)
--- NOTE | 2019-05-19 11:54 | Diagnostic Imaging Report ---
Indication: Abdominal pain Technique: Continuous helical transaxial imaging of the abdomen and pelvis was obtained from the lung bases to the pubic symphysis during intravenous contrast administration. Coronal 2-D reformats were also obtained. Study obtained in a Siemens sensation [address] Automatic Exposure Control was utilized. Total Dose length Product (DLP): 447.[address] Dose Index Volume (CTDIvol): 9.23 mGy Comparison: None Findings: Mild atelectasis demonstrated at the lung bases. Trace free peritoneal air in keeping with recent surgery. Skin mayela still present in the ventral abdominal wall. Gastrostomy noted in good position. The liver is unremarkable. The spleen is unremarkable. The pancreas is relatively atrophic. Gallbladder is distended but otherwise unremarkable. There is diffuse generalized distention of multiple small bowel loops are up abdomen which may be an ileus. There is a continent ileostomy in the right lower quadrant with catheter situated within the pouch. There is a circumscribed cystic focus in the pelvis which is likely the urinary bladder. The bladder has taken a somewhat posterior position and is seen in the expected location of the rectum which is not visualized. Patient has had a total colectomy. I do not see an abscess or abnormal fluid collection within the abdomen or pelvis. IMPRESSION: Status post recent abdominal surgery. Continent ileostomy and pouch noted within the pelvis. Catheter appears to be in good position. Distended loops of small bowel noted in the diffuse fashion is likely ileus given recent surgery. No abscess identified. Slightly distended urinary bladder noted. Mild posterior basilar atelectasis. Gastrostomy. The CT scanner at [facility] is accredited by the [employer] and the scans are performed using dose optimization techniques as appropriate to a performed exam including Automatic Exposure control.
[2019-05-19 12:00] VITALS: BP 128/72
--- NOTE | 2019-05-19 13:23 | General Progress Note ---
Progress Note Progress Note T 101.6 last night and felt ill. No abdominal complaints PIC line removed and started on Zosyn IV CT scan abd+pelvis with oral and IV contrast negative Abdomen soft, 1/3 mayela removed Urine 1275 Gastrostomy plugged BCIR ileo 1420 WBC 23,000 Urine C&S - no growth Imp. Fever and leukocytosis ? etiology ? due to PIC line Plan; Zosyn IV Resume BCIR diet continue IV hydration f/ulabs await blood and PIC tip cultures Will Quintero MD May 19, 2019 13:23
[2019-05-19 16:00] VITALS: BP 128/79
[2019-05-19 20:00] VITALS: BP 129/71
[2019-05-20] VITALS: BP 133/67
[2019-05-20] MEDS: HYDROcodone/Acetamin 10/325 tab ORAL PRN ×5 (01:03→20:18)
[2019-05-20 04:00] VITALS: BP 116/64
[2019-05-20] MEDS: NovoLOG Insulin Flexpen SUBQ SCH ×4 (05:19→23:36)
[2019-05-20] MEDS: Piperacillin/Tazobactam 3.375 GM in NS 110 ML IVPB SCH (05:21)
[2019-05-20 06:21] LABS: HEMATOCRIT 40.2 % (42.0-52.0); HEMOGLOBIN 13.2 G/DL (14.2-18.0); MEAN CORPUSCULAR VOLUME 88 FL (80-99); PLATELET COUNT 430 K/UL (150-450); RED BLOOD COUNT 4.57 M/UL (4.70-6.10); RED CELL DISTRIBUTION WIDTH 12.7 % (11.6-14.8); WHITE BLOOD COUNT 19.1 K/UL (4.8-10.8)
[2019-05-20 06:32] LABS: ALANINE AMINOTRANSFERASE 40 U/L (12-78); ALBUMIN/GLOBULIN RATIO 0.6 (1.0-2.7); ALKALINE PHOSPHATASE 127 U/L (46-116); ANION GAP 8 mmol/L (5-15); ASPARTATE AMINO TRANSFERASE 25 U/L (15-37); BILIRUBIN,TOTAL 0.5 MG/DL (0.2-1.0); CALCIUM 9.9 MG/DL (8.5-10.1); CARBON DIOXIDE 25 MMOL/L (21-32); CHLORIDE 97 MMOL/L (98-107); CREATININE 0.9 MG/DL (0.55-1.30); POTASSIUM 4.9 MMOL/L (3.5-5.1); SODIUM 130 MMOL/L (136-145)
[2019-05-20 06:51] LABS: BLOOD UREA NITROGEN 17 mg/dL (7-18)
[2019-05-20 08:00] VITALS: BP 122/68
[2019-05-20] MEDS: DULoxetine 30mg cap ORAL SCH (08:59)
[2019-05-20] MEDS: Acyclovir 200mg Cap ORAL SCH (08:59)
[2019-05-20] MEDS: Dextrose 10% 1,000 ML IV SCH (10:28)
--- NOTE | 2019-05-20 10:36 | General Progress Note ---
Progress Note Progress Note Afebrile x 24 hours since PIC removed CT abd+pelvis negative Patient feels much better - tolerating BCIR diet Abdomen soft [place]/sutures removed and steristrips applied Urine 1430 BCIR ileo 2170 Including po contrast WBC down 19,100 Hgb 13.2 Na 130 BUN down 17 Cr 0.9 Imp: Fever resolved, leukocytosis improved all cultures negative so far Plan: D/C Zosyn change IV fluids to NS f/u labs in AM hopefully can start RN supervised BCIR self-intubations and remove gastrostomy in Will Quintero MD May 20, 2019 10:36
[2019-05-20 12:00] VITALS: BP 109/65
[2019-05-20] MEDS ORDERED: NS Irrig 1000ml ONE (14:47)
[2019-05-20 16:00] VITALS: BP 112/60
[2019-05-20 20:00] VITALS: BP 121/70
[2019-05-21] VITALS: BP 118/73
[2019-05-21] MEDS: HYDROcodone/Acetamin 10/325 tab ORAL PRN ×5 (00:48→18:37)
[2019-05-21 04:00] VITALS: BP 131/67
[2019-05-21] MEDS: NovoLOG Insulin Flexpen SUBQ SCH ×3 (05:38→18:00)
[2019-05-21 05:48] LABS: BASOPHILS % (AUTO) 0.7 % (0.0-2.0); EOSINOPHILS % (AUTO) 7.7 % (0.0-3.0); HEMOGLOBIN 12.3 G/DL (14.2-18.0); MEAN CORPUSCULAR VOLUME 88 FL (80-99); MONOCYTES % (AUTO) 7.8 % (1.0-10.0); NEUTROPHILS % (AUTO) 68.8 % (45.0-75.0); PLATELET COUNT 434 K/UL (150-450); RED BLOOD COUNT 4.31 M/UL (4.70-6.10); RED CELL DISTRIBUTION WIDTH 12.3 % (11.6-14.8); WHITE BLOOD COUNT 17.1 K/UL (4.8-10.8)
[2019-05-21 06:09] LABS: ALANINE AMINOTRANSFERASE 35 U/L (12-78); ALBUMIN 2.7 G/DL (3.4-5.0); ALBUMIN/GLOBULIN RATIO 0.6 (1.0-2.7); ALKALINE PHOSPHATASE 113 U/L (46-116); ANION GAP 7 mmol/L (5-15); ASPARTATE AMINO TRANSFERASE 18 U/L (15-37); BILIRUBIN,TOTAL 0.3 MG/DL (0.2-1.0); BLOOD UREA NITROGEN 16 mg/dL (7-18); CALCIUM 9.4 MG/DL (8.5-10.1); CARBON DIOXIDE 24 MMOL/L (21-32); CHLORIDE 104 MMOL/L (98-107); CREATININE 0.8 MG/DL (0.55-1.30); POTASSIUM 4.5 MMOL/L (3.5-5.1); SODIUM 135 MMOL/L (136-145)
--- NOTE | 2019-05-21 07:49 | General Progress Note ---
Progress Note Progress Note AVSS Feels okay. Abdomen soft. Tolerating gastrostomy plugged continuously Urine 1750 BCIR ileo 1070 eating 75% of BCIR diet WBC down 17,100 Hgb 12.3 BMP-wnl Albumin 2.7 Imp. Improving Plan: BCIR ileo catheter removed - reinserts readily RN supervised BCIR self-intubations q2h am to hs and 0200 d/c iv fluids continue strict I&O fu labs Will Quintero MD May 21, 2019 07:49
[2019-05-21 08:45] VITALS: BP 123/66
[2019-05-21] MEDS: DULoxetine 30mg cap ORAL SCH (09:24)
[2019-05-21] MEDS: Acyclovir 200mg Cap ORAL SCH (09:24)
[2019-05-21] MEDS ORDERED: NS Irrig 1000ml ONE (12:39)
[2019-05-21 16:09] VITALS: BP 121/69
[2019-05-21 20:00] VITALS: BP 114/68
[2019-05-22] VITALS: BP 121/73
[2019-05-22] MEDS: NovoLOG Insulin Flexpen SUBQ SCH ×4 (00:23→18:36)
[2019-05-22 04:20] VITALS: BP 108/65
[2019-05-22 05:51] LABS: EOSINOPHILS % (AUTO) 5.3 % (0.0-3.0); HEMATOCRIT 37.6 % (42.0-52.0); HEMOGLOBIN 12.2 G/DL (14.2-18.0); LYMPHOCYTES % (AUTO) 14.6 % (20.0-45.0); MEAN CORPUSCULAR VOLUME 88 FL (80-99); NEUTROPHILS % (AUTO) 72.1 % (45.0-75.0); PLATELET COUNT 462 K/UL (150-450); RED BLOOD COUNT 4.29 M/UL (4.70-6.10); RED CELL DISTRIBUTION WIDTH 11.8 % (11.6-14.8); WHITE BLOOD COUNT 17.4 K/UL (4.8-10.8)
[2019-05-22] MEDS: HYDROcodone/Acetamin 10/325 tab ORAL PRN ×4 (05:54→22:07)
[2019-05-22 06:17] LABS: ANION GAP 10 mmol/L (5-15); BLOOD UREA NITROGEN 18 mg/dL (7-18); CALCIUM 9.3 MG/DL (8.5-10.1); CARBON DIOXIDE 21 MMOL/L (21-32); CHLORIDE 105 MMOL/L (98-107); CREATININE 0.7 MG/DL (0.55-1.30); POTASSIUM 3.8 MMOL/L (3.5-5.1); SODIUM 136 MMOL/L (136-145)
[2019-05-22 08:00] VITALS: BP 120/70
[2019-05-22] MEDS: DULoxetine 30mg cap ORAL SCH (10:24)
[2019-05-22] MEDS: Acyclovir 200mg Cap ORAL SCH (10:24)
--- NOTE | 2019-05-22 11:58 | Infectious Diseases Prog Note ---
Assessment/Plan Assessment/Plan Full consult dictated: A) 1) leukocytosis, ? etiology 2) s/p Pablo ileostomy - 05/07/19 3) picc line removed, cultures neg to date 4) surveillance CT scan without abscess 5) fevers on 05/18/19 - resolved 6) hx of zosyn abx P) 1) surveillance cultures, labs and chest x-ray 2) monitor wbc, labs 3) antibiotics if indicated - hold for now 4) will f/u 5) thank you Subjective Allergies: Coded Allergies: ALCOHOL (Verified Allergy, Intermediate, 05/06/19) sever nausea when drinking alcohol NICOTINE (Unverified Allergy, Unknown, 05/07/19) Rash with nicotine patch Uncoded Allergies: nicotin patch (Allergy, Intermediate, Rash, 05/06/19) Objective Vital Signs Last 24 Hour Vital Signs Date Time Temp Pulse Resp B/P (MAP) Pulse Ox O2 Delivery O2 Flow Rate FiO2 05/22/19 08:00 99.1 100 18 120/70 (87) 96 05/22/19 04:20 98.7 100 18 108/65 (79) 96 05/22/19 00:00 99.4 92 20 121/73 (89) 97 05/21/19 20:14 Room Air 05/21/19 20:00 98.3 96 20 114/68 (83) 95 05/21/19 16:09 99.3 95 20 121/69 (86) 95 Height (Feet): 5 Height (Inches): 9.00 Weight (Pounds): 164 Laboratory Tests Test 05/22/19 05:25 White Blood Count 17.4 K/UL (4.8-10.8) H Red Blood Count 4.29 M/UL (4.70-6.10) L Hemoglobin 12.2 G/DL (14.2-18.0) L Hematocrit 37.6 % (42.0-52.0) L Mean Corpuscular Volume 88 FL (80-99) Mean Corpuscular Hemoglobin 28.4 PG (27.0-31.0) Mean Corpuscular Hemoglobin Concent 32.4 G/DL (32.0-36.0) Red Cell Distribution Width 11.8 % (11.6-14.8) Platelet Count 462 K/UL (150-450) H Mean Platelet Volume 7.9 FL (6.5-10.1) Neutrophils (%) (Auto) 72.1 % (45.0-75.0) Lymphocytes (%) (Auto) 14.6 % (20.0-45.0) L Monocytes (%) (Auto) 7.0 % (1.0-10.0) Eosinophils (%) (Auto) 5.3 % (0.0-3.0) H Basophils (%) (Auto) 1.0 % (0.0-2.0) Sodium Level 136 MMOL/L (136-145) Potassium Level 3.8 MMOL/L (3.5-5.1) Chloride Level 105 MMOL/L (98-107) Carbon Dioxide Level 21 MMOL/L (21-32) Anion Gap 10 mmol/L (5-15) Blood Urea Nitrogen 18 mg/dL (7-18) Creatinine 0.7 MG/DL (0.55-1.30) Estimat Glomerular Filtration Rate > 60 mL/min (>60) Glucose Level 132 MG/DL (74-106) H Calcium Level 9.3 MG/DL (8.5-10.1) Current Medications Medications (Trade) Dose Ordered Sig/Hai Route PRN Reason Start Time Stop Time Status Last Admin Dose Admin Acetaminophen (Tylenol) 650 mg Q4H PRN ORAL Temp > 100.2 05/18/19 21:15 06/17/19 21:14 Acetaminophen (Tylenol) 1,000 mg Q4H PRN ORAL temp>100.2 or headache 05/13/19 09:00 06/06/19 12:29 05/18/19 21:10 Acetaminophen/ Hydrocodone Bitart ([place] 10/325) 1 tab Q4H PRN ORAL For Pain 05/17/19 10:45 05/24/19 10:44 05/22/19 05:54 Acyclovir (Zovirax) 200 mg DAILY ORAL 05/06/19 18:00 06/05/19 17:59 05/22/19 10:24 Ascorbic Acid (Vitamin C) 500 mg Q4H PRN ORAL THICK EFFLUENT 05/16/19 22:00 06/15/19 21:59 05/17/19 18:20 Dextrose (Dextrose 50%) 25 ml Q30M PRN IV Hypoglycemia 05/08/19 07:45 06/07/19 07:44 Dextrose (Dextrose 50%) 50 ml Q30M PRN IV Hypoglycemia 05/08/19 07:45 06/07/19 07:44 Duloxetine HCl (Cymbalta) 60 mg DAILY ORAL 05/06/19 15:55 06/05/19 15:54 05/22/19 10:24 Insulin Aspart (NovoLOG) Q6HR SUBQ 05/09/19 00:00 06/08/19 00:00 05/22/19 06:00 Lorazepam (Ativan) 1 mg HSPRN PRN SL insomnia 05/18/19 09:30 05/25/19 09:29 Lorazepam (Ativan) 1 mg Q4H PRN SL Muscle Spasm 05/18/19 09:30 05/25/19 09:29 Ondansetron HCl (Zofran ODT) 4 mg Q6H PRN ORAL Nausea & Vomiting 05/17/19 08:45 06/16/19 08:44 Lei Heard MD May 22, 2019 11:58
[2019-05-22 12:00] VITALS: BP 122/59
[2019-05-22 14:32] LABS: APPEARANCE,URINE CLEAR; BILIRUBIN, URINE NEGATIVE (NEGATIVE); GLUCOSE, URINE (UA) 1+ (NEGATIVE); KETONES,URINE NEGATIVE (NEGATIVE); LEUKOCYTE ESTERASE ,URINE NEGATIVE (NEGATIVE); NITRITE,URINE NEGATIVE (NEGATIVE); PH,URINE 6 (4.5-8.0); PROTEIN,URINE 2+ (NEGATIVE); UROBILINOGEN,URINE NORMAL MG/DL (0.0-1.0)
[2019-05-22 14:35] LABS: COLOR,URINE YELLOW
--- NOTE | 2019-05-22 15:05 | General Progress Note ---
Progress Note Progress Note AVSS Doing well with q2h RN supervised BCIR self-intubations from am to hs and 0200 Still with elevated WBC 17,400 Hgb 12.2 BMP-wnl Abdomen soft, stoma healing nicely Gastrostomy removed readily Urine 1400 BCIR ileo 1960 Imp. Persistent leukocytosis High volume ileo output - denies abdominal pain or cramping Plan: ID consult - appreciated stool for C. diff toxin AM labs Will Quintero MD May 22, 2019 15:04
--- NOTE | 2019-05-22 15:19 | Diagnostic Imaging Report ---
Indication: Dyspnea Comparison: 05/06/2019 A single view chest radiograph was obtained. Findings: Lungs are hyperexpanded. Heart size is normal. Bones are osteopenic. IMPRESSION: COPD
[2019-05-22 16:00] VITALS: BP 110/73
[2019-05-22 20:00] VITALS: BP 129/69
[2019-05-23] VITALS: BP 117/70
[2019-05-23] MEDS: NovoLOG Insulin Flexpen SUBQ SCH ×4 (00:14→19:45)
[2019-05-23] MEDS: HYDROcodone/Acetamin 10/325 tab ORAL PRN ×5 (03:31→23:10)
[2019-05-23 03:37] VITALS: BP 130/71
[2019-05-23 06:43] LABS: HEMATOCRIT 38.5 % (42.0-52.0); HEMOGLOBIN 12.6 G/DL (14.2-18.0); MEAN CORPUSCULAR VOLUME 88 FL (80-99); PLATELET COUNT 493 K/UL (150-450); RED BLOOD COUNT 4.38 M/UL (4.70-6.10); RED CELL DISTRIBUTION WIDTH 12.3 % (11.6-14.8)
[2019-05-23 07:13] LABS: ALANINE AMINOTRANSFERASE 27 U/L (12-78); ALBUMIN 2.9 G/DL (3.4-5.0); ALBUMIN/GLOBULIN RATIO 0.6 (1.0-2.7); ALKALINE PHOSPHATASE 106 U/L (46-116); ANION GAP 10 mmol/L (5-15); ASPARTATE AMINO TRANSFERASE 13 U/L (15-37); BILIRUBIN,TOTAL 0.4 MG/DL (0.2-1.0); BLOOD UREA NITROGEN 22 mg/dL (7-18); CALCIUM 9.5 MG/DL (8.5-10.1); CARBON DIOXIDE 22 MMOL/L (21-32); CHLORIDE 105 MMOL/L (98-107); CREATININE 0.7 MG/DL (0.55-1.30); POTASSIUM 4.1 MMOL/L (3.5-5.1); SODIUM 137 MMOL/L (136-145)
[2019-05-23 08:00] VITALS: BP 110/74
[2019-05-23] MEDS ORDERED: Isovue-300 100ml vial INJ PRN (08:00)
--- NOTE | 2019-05-23 08:18 | General Progress Note ---
Progress Note Progress Note AVSS Less po intake than previously and intermittent c/o abd pain Abdomen soft, flat, non-tender Incisions, gastrostomy site and stoma healing nicely Urine 580 BCIR ileo 880 WBC up 18,000 Platelets up 493,000 CMP - okay except albumin 2.9 U/A borderline - C&S pending Imp. Leukocytosis decreased urine output Plan: repeat CT scan abd+pelvis with oral and Iv contrast IV fluids to start STAT 28 Gomez to Pablo pouch to continuous drainage until after CT scan contrast clears through discussed with Will Garcia MD May 23, 2019 08:18
[2019-05-23] MEDS: D5 1/2NS w/KCL 10meq 1,000 ML IV SCH ×2 (08:33→18:39)
[2019-05-23] MEDS: DULoxetine 30mg cap ORAL SCH (08:33)
[2019-05-23] MEDS: Acyclovir 200mg Cap ORAL SCH (08:35)
[2019-05-23 12:00] VITALS: BP 117/66
--- NOTE | 2019-05-23 13:00 | Diagnostic Imaging Report ---
Indication: Abdominal pain status post recent surgery. Technique: CT of the abdomen and pelvis utilizing automated exposure control with intravenous contrast. Venous scanning performed. Axial, sagittal and coronal reformats presented. CT dose: Total DLP 433.61 mGycm; CTDI vol 9.47 mGy Comparison: 05/19/2019 Findings: Dependent atelectatic changes noted in the lung bases. More focal subsegmental atelectasis noted in the posterior right lower lobe. Heart size within normal limits. No pericardial effusion. Liver normal in size and contour. No focal hepatic mass lesions noted on this single phase exam. Hepatic and portal veins are patent. Gallbladder is mildly distended. There are no CT evident gallstones or pericholecystic inflammatory changes. No biliary ductal dilatation. Spleen, adrenal glands unremarkable. Pancreas is again noted to be atrophic. Kidneys enhance symmetrically. There is no hydronephrosis or perinephric stranding. The bladder is mildly distended but otherwise unremarkable. Prostate is again noted to be enlarged and heterogeneous, particularly the central gland which exerts mass effect on the posterior aspect of the bladder. A very small focus of free intraperitoneal air is noted under the diaphragm, just anterior to the liver (series 6 image #27), likely residual from recent intervention. Decreased compared to the prior exam on 05/19/2019. The previously seen gastrostomy tube catheter has been removed in the interim. No fluid collection is noted about the prior gastrostomy tract. Postsurgical changes related to prior colectomy and more recent creation of a right lower quadrant continent ileostomy noted. A catheter is again noted in the ileostomy pouch/reservoir, which demonstrates decreased distention compared to the prior exam. Just underneath the reservoir there is a peripherally enhancing tubular structure which measures approximately 5.3 cm AP and 2 cm transverse which may represent a small loop of bowel which is nonopacified with enteric contrast although it this structure is difficult to definitively connect with the remainder of the small bowel. This does appear in close proximity with the inferior aspect of the reservoir and may potentially be related to the tail of the enteric collar. Possibility of a postsurgical fluid collection is thought less likely. Correlation with clinical symptoms however is recommended. The abdominal aorta is normal in caliber with scattered atherosclerotic calcifications. No pathologically enlarged lymphadenopathy is identified. There are degenerative changes unchanged mild superior endplate compression deformities of the L1 and L2 vertebral bodies. No acute fracture. IMPRESSION: * Postsurgical changes related to prior colectomy and more recent creation of a right lower quadrant continent ileostomy. Along the inferior aspect of the reservoir there is a peripherally enhancing fluid-filled tubular structure (axial series image #62; sagittal series image #36) which is favored to be related to the tail of the enteric collar. Possibility of a postsurgical fluid collection is thought less likely. Correlation with clinical symptoms however is recommended. * No evidence of small bowel obstruction. Improved ileus compared to prior exam. * Interval removal of gastrostomy tube. No evidence of fluid collection or other complication on the prior colostomy tube tract. * Very small focus of free intraperitoneal air is noted under the diaphragm, just anterior to the liver (series 6 image #27), likely residual from recent intervention and decreased from the prior exam. * Mildly distended bladder, possibly related to a degree of tension from enlarged and heterogeneous prostate. The CT scanner at [facility] is accredited by the [employer] and the scans are performed using protocols designed to limit radiation exposure to as low as reasonably achievable to attain images of sufficient resolution adequate for diagnostic evaluation.
[2019-05-23] MEDS ORDERED: NS Irrig 1000ml ONE (14:48)
[2019-05-23 16:00] VITALS: BP 106/61
--- NOTE | 2019-05-23 18:35 | Infectious Diseases Prog Note ---
Assessment/Plan Assessment/Plan Full consult dictated: A) 1) leukocytosis, ? etiology, fevers resolved, CT without abscess, ? sepsis 2) s/p Pablo ileostomy - 05/07/19 3) picc line removed, cultures neg to date 4) surveillance CT scan without abscess 5) fevers on 05/18/19 - resolved 6) hx of zosyn abx P) 1) f/u on surveillance cultures, labs and chest x-ray 2) monitor wbc, labs 3) antibiotics if indicated - hold for now 4) will f/u 5) d/w Dr. Quintero Subjective Constitutional: Denies: fever HEENT: Denies: congestion Respiratory: Denies: shortness of breath Cardiovascular: Denies: chest pain Gastrointestinal/Abdominal: Denies: nausea, vomiting Allergies: Coded Allergies: ALCOHOL (Verified Allergy, Intermediate, 05/06/19) sever nausea when drinking alcohol NICOTINE (Unverified Allergy, Unknown, 05/07/19) Rash with nicotine patch Uncoded Allergies: nicotin patch (Allergy, Intermediate, Rash, 05/06/19) Objective Vital Signs Last 24 Hour Vital Signs Date Time Temp Pulse Resp B/P (MAP) Pulse Ox O2 Delivery O2 Flow Rate FiO2 05/23/19 16:00 97.9 107 21 106/61 (76) 95 05/23/19 12:00 98.2 82 21 117/66 (83) 97 05/23/19 09:00 Room Air 05/23/19 08:00 97.2 58 19 110/74 (86) 97 05/23/19 03:37 98.1 96 18 130/71 (90) 96 05/23/19 00:00 99.1 97 18 117/70 (86) 96 05/22/19 21:00 Room Air 05/22/19 20:00 98.3 89 18 129/69 (89) 97 Height (Feet): 5 Height (Inches): 9.00 Weight (Pounds): 164 General Appearance: no acute distress HEENT: normocephalic, atraumatic, anicteric, mucous membranes moist Respiratory/Chest: lungs clear, normal breath sounds, no respiratory distress, no accessory muscle use Cardiovascular: normal rate, no gallop/murmur, no JVD Abdomen: normal bowel sounds, soft, non tender Microbiology Date/Time Source Procedure Growth Status 8/8/19 19:03 Stool Clostridium difficile Toxin Assay - Final Complete Laboratory Tests Test 05/23/19 05:40 White Blood Count 18.0 K/UL (4.8-10.8) H Red Blood Count 4.38 M/UL (4.70-6.10) L Hemoglobin 12.6 G/DL (14.2-18.0) L Hematocrit 38.5 % (42.0-52.0) L Mean Corpuscular Volume 88 FL (80-99) Mean Corpuscular Hemoglobin 28.8 PG (27.0-31.0) Mean Corpuscular Hemoglobin Concent 32.8 G/DL (32.0-36.0) Red Cell Distribution Width 12.3 % (11.6-14.8) Platelet Count 493 K/UL (150-450) H Mean Platelet Volume 7.8 FL (6.5-10.1) Neutrophils (%) (Auto) % (45.0-75.0) Lymphocytes (%) (Auto) % (20.0-45.0) Monocytes (%) (Auto) % (1.0-10.0) Eosinophils (%) (Auto) % (0.0-3.0) Basophils (%) (Auto) % (0.0-2.0) Differential Total Cells Counted 100 Neutrophils % (Manual) 72 % (45-75) Lymphocytes % (Manual) 13 % (20-45) L Monocytes % (Manual) 8 % (1-10) Eosinophils % (Manual) 3 % (0-3) Basophils % (Manual) 1 % (0-2) Band Neutrophils 3 % (0-8) Platelet Estimate Increased H Platelet Morphology Normal Red Blood Cell Morphology Normal Sodium Level 137 MMOL/L (136-145) Potassium Level 4.1 MMOL/L (3.5-5.1) Chloride Level 105 MMOL/L (98-107) Carbon Dioxide Level 22 MMOL/L (21-32) Anion Gap 10 mmol/L (5-15) Blood Urea Nitrogen 22 mg/dL (7-18) H Creatinine 0.7 MG/DL (0.55-1.30) Estimat Glomerular Filtration Rate > 60 mL/min (>60) Glucose Level 146 MG/DL (74-106) H Calcium Level 9.5 MG/DL (8.5-10.1) Total Bilirubin 0.4 MG/DL (0.2-1.0) Aspartate Amino Transf (AST/SGOT) 13 U/L (15-37) L Alanine Aminotransferase (ALT/SGPT) 27 U/L (12-78) Alkaline Phosphatase 106 U/L (46-116) Total Protein 7.6 G/DL (6.4-8.2) Albumin 2.9 G/DL (3.4-5.0) L Globulin 4.7 g/dL Albumin/Globulin Ratio 0.6 (1.0-2.7) L Current Medications Medications (Trade) Dose Ordered Sig/Hai Route PRN Reason Start Time Stop Time Status Last Admin Dose Admin Acetaminophen (Tylenol) 650 mg Q4H PRN ORAL Temp > 100.2 05/18/19 21:15 06/17/19 21:14 Acetaminophen (Tylenol) 1,000 mg Q4H PRN ORAL temp>100.2 or headache 05/13/19 09:00 06/06/19 12:29 05/18/19 21:10 Acetaminophen/ Hydrocodone Bitart ([place] 10/325) 1 tab Q4H PRN ORAL For Pain 05/22/19 16:00 05/29/19 15:59 05/23/19 14:05 Acyclovir (Zovirax) 200 mg DAILY ORAL 05/06/19 18:00 06/05/19 17:59 05/23/19 08:35 Ascorbic Acid (Vitamin C) 500 mg Q4H PRN ORAL THICK EFFLUENT 05/16/19 22:00 06/15/19 21:59 05/17/19 18:20 Barium Sulfate (Readi-Cat 2) 450 ml NOW PRN ORAL Radiology Procedure 05/23/19 08:00 05/25/19 07:56 Dextrose (Dextrose 50%) 25 ml Q30M PRN IV Hypoglycemia 05/08/19 07:45 06/07/19 07:44 Dextrose (Dextrose 50%) 50 ml Q30M PRN IV Hypoglycemia 05/08/19 07:45 06/07/19 07:44 Dextrose/ Electrolytes 1,000 ml @ 100 mls/hr Q10H IV 05/23/19 08:30 06/22/19 08:29 05/23/19 08:33 Duloxetine HCl (Cymbalta) 60 mg DAILY ORAL 05/24/19 09:00 06/05/19 08:59 Insulin Aspart (NovoLOG) Q6HR SUBQ 05/09/19 00:00 06/08/19 00:00 05/23/19 06:27 Iopamidol (Isovue-300 100ml) 100 ml NOW PRN INJ Radiology Procedure 05/23/19 08:00 05/25/19 23:59 Lorazepam (Ativan) 1 mg HSPRN PRN SL insomnia 05/18/19 09:30 05/25/19 09:29 Lorazepam (Ativan) 1 mg Q4H PRN SL Muscle Spasm 05/18/19 09:30 05/25/19 09:29 Ondansetron HCl (Zofran ODT) 4 mg Q6H PRN ORAL Nausea & Vomiting 05/17/19 08:45 06/16/19 08:44 Lei Heard MD May 23, 2019 18:35
[2019-05-23 20:00] VITALS: BP 104/69
[2019-05-24] VITALS: BP 117/66
[2019-05-24] MEDS: HYDROcodone/Acetamin 10/325 tab ORAL PRN ×5 (03:10→22:01)
[2019-05-24 04:00] VITALS: BP 115/72
[2019-05-24] MEDS: D5 1/2NS w/KCL 10meq 1,000 ML IV SCH (04:29)
--- NOTE | 2019-05-24 05:30 | Consultation ---
DATE OF CONSULTATION: 05/23/2019 INFECTIOUS DISEASE CONSULTATION CONSULTING PHYSICIAN: Lei Heard M.D. ATTENDING PHYSICIAN: Noel Quintero M.D. REFERRING PHYSICIAN: Will Quintero M.D. REASON FOR CONSULTATION: Elevated white count and history of fevers, questionable sepsis, etiology of leukocytosis. CHIEF COMPLAINT: The patient's chief complaint coming in to the hospital is malfunction ileostomy. HISTORY OF PRESENT ILLNESS: This is a very pleasant 63-year-old male, who has history of ileostomy, who had a malfunction ileostomy and history of ulcerative colitis and history of multiple abdominal operations. The patient is status post Pablo continent intestinal reservoir ileostomy with takedown of conventional ileostomy and temporary catheter gastrostomy. The patient's surgery was on 05/07/2019 and now the patient was noted to have a persistent leukocytosis. The patient had what looks like a central line, I believe a PICC line that was removed on 05/19/2019. Cath tip was negative. Blood cultures have been negative. C. diff was negative. Two CT scans including one most recently with and without IV contrast, which did not show an abscess. Infectious Disease consultation was requested because of the persistent leukocytosis. I saw the patient yesterday and ordered blood cultures. UA has been benign. The patient on CT scan showed improved ileus and mostly it showed postsurgical changes, possibly postsurgical fluid collection is thought to be less likely. The patient currently is off antibiotics. He was given a course of Zosyn earlier in the hospital stay. Case was discussed with Dr. Quintero. The patient's white count still remains at 18,000. His fevers, however, have resolved. REVIEW OF SYSTEMS: CONSTITUTIONAL: The patient has generalized fatigue. No focal weakness. His last fever was on 05/18/2019 and 05/19/2019 and that was 100.0 degrees on 05/19/2019 and 101.6 degrees on 05/18/2019. HEAD AND NECK: No head pain. No headache. CARDIAC: No chest pain. GASTROINTESTINAL: Some abdominal discomfort. GENITOURINARY: No dysuria or frequency. PULMONARY: No congestion or shortness of breath. SKIN: No rash. EXTREMITIES: No extremity pain. NEUROLOGIC: No seizures. PAST MEDICAL HISTORY: The patient's past medical history includes the following. The patient has a past medical history of ulcerative colitis and malfunction ileostomy. He is status post Pablo continent ileostomy. He has history of malabsorption. He has a history of diabetes, history of neuropathy, and anemia. No history of hypertension. He has a history of multiple abdominal surgeries including proctocolectomy and Nikole ileostomy. He also has history of Pablo continent intestinal reservoir in 1991 and also Pablo pouch. MEDICATIONS: Upon reviewing the MAR, the patient is on the following medications. He is on Cymbalta. He is on barium sulfate, hydrocodone, and lorazepam. He is on Zofran, ascorbic acid, and acetaminophen. He is on IV fluids and insulin. Outside medications were noted and reconciliated. ALLERGIES: Include alcohol, nicotine, and nicotine patch. SOCIAL HISTORY: Negative for smoking, alcohol, or drug abuse. FAMILY HISTORY: Noncontributory. PHYSICAL EXAMINATION: VITAL SIGNS: Currently, temperature is 97.9 degrees, pulse rate 107, respiratory rate 21, blood pressure 106/61, and saturation 95%. T-max on 05/18/2019 was 101.6 degrees, but his fevers have resolved. GENERAL: Alert, responsive, and oriented x3. HEAD AND NECK: Oral exam, no thrush. Eye exam, no icterus. Neck is supple. No JVD. Normocephalic. LUNGS: Clear bilaterally. No rhonchi or rales. HEART: Regular. No obvious gallop or murmur. ABDOMEN: Soft. Positive bowel sounds. He has a G-tube. Incision looks clean and dry. SKIN: No rash. MUSCULOSKELETAL: No effusion. Legs are without cellulitis. No septic arthritis. PERIPHERAL VASCULAR: No cyanosis. GENITOURINARY: No Gomez. LINE SITES: Without phlebitis. PICC line was removed. NEUROLOGIC: Intact. Alert and oriented x3. Generalized weakness and responsive. LABORATORY DATA: Laboratory data is as follows. White count 18.0, hemoglobin 12.6, and platelet count 493,000. White count has been as high as 23.2 on 05/19/2019. Creatinine is 0.7. CULTURES: Cath tip and blood cultures have been negative on 05/18/2019 and 05/19/2019. The catheter tip was negative on 05/18/2019. Blood cultures negative. C. difficile is negative on 05/22/2019. Surveillance blood cultures are pending. Urinalysis showed leukocyte esterase to be negative, 5 to 10 white blood cells. Urine culture in the past was negative. Surveillance blood cultures are pending. Previous blood and urine cultures negative. IMAGING DATA: CT scan of the abdomen and pelvis showed no obvious fluid collection or jann abscess. We got the reading again of CT scan of abdomen and pelvis. This is with contrast. It showed postsurgical changes and peripherally enhancing fluid-filled tubular structure, which is felt to be related to the tail of the enteric collar, possibly some postsurgical changes is thought to be less likely. No evidence of bowel obstruction. ASSESSMENT AND PLAN: 1. The patient has postoperative leukocytosis that is persistent, unclear if the patient had line infection. However, since the line was removed, the patient still has persistent leukocytosis, and the catheter tip and blood cultures have been negative. It is unclear if the patient has sepsis. However, the patient clinically does not look septic. We will follow up on surveillance blood cultures to see if the patient has any bacteremia of some type related to line. The CT scan of the abdomen and pelvis showed no obvious abscess. Upon reviewing the reading, this is with contrast. Continue to monitor the white cell count and monitor for any temperature spikes. At this time, we will hold off on antibiotics since there is no evidence of infection and we will give antibiotics only if indicated. Follow up on labs and blood cultures for now. 2. The patient is status post Pablo ileostomy done on 05/07/2019. 3. The patient has history of ulcerative colitis. 4. History of conventional ileostomy. 5. History of malabsorption. 6. Diabetes. 7. Neuropathy. 8. Anemia. 9. Posttraumatic stress disorder. 10. History of multiple abdominal surgeries. 11. Allergies to nicotine, alcohol, and nicotine patch. 12. Social history is negative. 13. Family history is noncontributory. 14. MAR was noted. 15. Case was discussed with RN. 16. Case was discussed with Dr. Quintero. 17. Notes and records were noted. Orders were entered. Lei Heard M.D. DR: BRAEDEN JOB#: [id number] CC:
[2019-05-24] MEDS: NovoLOG Insulin Flexpen SUBQ SCH ×4 (06:00→18:19)
[2019-05-24 06:12] LABS: BASOPHILS % (AUTO) 0.8 % (0.0-2.0); EOSINOPHILS % (AUTO) 2.5 % (0.0-3.0); HEMATOCRIT 36.2 % (42.0-52.0); HEMOGLOBIN 11.7 G/DL (14.2-18.0); LYMPHOCYTES % (AUTO) 11.4 % (20.0-45.0); MEAN CORPUSCULAR VOLUME 87 FL (80-99); MONOCYTES % (AUTO) 7.5 % (1.0-10.0); NEUTROPHILS % (AUTO) 77.8 % (45.0-75.0); PLATELET COUNT 429 K/UL (150-450); RED BLOOD COUNT 4.15 M/UL (4.70-6.10); RED CELL DISTRIBUTION WIDTH 12.1 % (11.6-14.8); WHITE BLOOD COUNT 11.3 K/UL (4.8-10.8)
[2019-05-24 06:40] LABS: ANION GAP 10 mmol/L (5-15); BLOOD UREA NITROGEN 15 mg/dL (7-18); CALCIUM 8.8 MG/DL (8.5-10.1); CARBON DIOXIDE 23 MMOL/L (21-32); CHLORIDE 103 MMOL/L (98-107); CREATININE 0.7 MG/DL (0.55-1.30); POTASSIUM 4.1 MMOL/L (3.5-5.1); SODIUM 135 MMOL/L (136-145)
[2019-05-24 08:00] VITALS: BP 117/61
[2019-05-24] MEDS: Acyclovir 200mg Cap ORAL SCH (09:10)
--- NOTE | 2019-05-24 11:28 | General Progress Note ---
Progress Note Progress Note WBC improved Febrile Abdomen soft, flat, non-tender Incisions, gastrostomy site and stoma healing nicely tolerating diet catheter removed CT noted Imp. Leukocytosis- improved / febrile Plan: on diet d/c ivf okay to shower resume self intubation Champ Neil May 24, 2019 11:28
[2019-05-24 12:00] VITALS: BP 115/68
[2019-05-24] MEDS ORDERED: NS Irrig 1000ml ONE (14:56)
[2019-05-24 16:00] VITALS: BP 115/71
[2019-05-24 20:00] VITALS: BP 123/70
[2019-05-25] VITALS: BP 109/70
[2019-05-25] MEDS: NovoLOG Insulin Flexpen SUBQ SCH ×5 (00:12→23:46)
[2019-05-25] MEDS: HYDROcodone/Acetamin 10/325 tab ORAL PRN ×5 (03:08→21:52)
[2019-05-25 04:00] VITALS: BP 125/72
[2019-05-25 07:26] LABS: BASOPHILS % (AUTO) 0.8 % (0.0-2.0); EOSINOPHILS % (AUTO) 2.8 % (0.0-3.0); HEMATOCRIT 39.1 % (42.0-52.0); HEMOGLOBIN 12.7 G/DL (14.2-18.0); LYMPHOCYTES % (AUTO) 14.3 % (20.0-45.0); MEAN CORPUSCULAR VOLUME 88 FL (80-99); MONOCYTES % (AUTO) 9.7 % (1.0-10.0); NEUTROPHILS % (AUTO) 72.4 % (45.0-75.0); PLATELET COUNT 436 K/UL (150-450); RED BLOOD COUNT 4.47 M/UL (4.70-6.10); RED CELL DISTRIBUTION WIDTH 11.9 % (11.6-14.8); WHITE BLOOD COUNT 11.9 K/UL (4.8-10.8)
[2019-05-25 07:46] LABS: ALANINE AMINOTRANSFERASE 24 U/L (12-78); ALBUMIN 2.8 G/DL (3.4-5.0); ALBUMIN/GLOBULIN RATIO 0.6 (1.0-2.7); ALKALINE PHOSPHATASE 100 U/L (46-116); ANION GAP 8 mmol/L (5-15); ASPARTATE AMINO TRANSFERASE 23 U/L (15-37); BILIRUBIN,TOTAL 0.2 MG/DL (0.2-1.0); BLOOD UREA NITROGEN 12 mg/dL (7-18); CALCIUM 9.9 MG/DL (8.5-10.1); CARBON DIOXIDE 25 MMOL/L (21-32); CHLORIDE 99 MMOL/L (98-107); CREATININE 0.8 MG/DL (0.55-1.30); POTASSIUM 4.6 MMOL/L (3.5-5.1); SODIUM 132 MMOL/L (136-145)
[2019-05-25 08:00] VITALS: BP 98/62
[2019-05-25] MEDS: Acyclovir 200mg Cap ORAL SCH (09:18)
[2019-05-25 12:00] VITALS: BP 112/74
--- NOTE | 2019-05-25 12:46 | General Progress Note ---
Progress Note Progress Note WBC improved fevers improved Abdomen soft, flat, non-tender Incisions, gastrostomy site and stoma healing nicely tolerating diet self intubating Imp. Leukocytosis- improved / fevers improved Plan: cont diet okay to shower cont self intubation Champ Neil May 25, 2019 12:46
--- NOTE | 2019-05-25 15:56 | Infectious Diseases Prog Note ---
Assessment/Plan Assessment/Plan ASSESSMENT AND PLAN: 1. leukocytosis, fevers, ? occult sepsis, recent line removed, cultures neg, s/ p Pablo ileostomy - monitor temperatures and wbc, labs, check duplex us legs, check echo - leukocytosis better but recurrent fevers - reculture patient - CT abdomen and pelvis without abscess, cultures neg to date, chest x-ray c/ w copd - antibiotics if indicated 2. The patient is status post Pablo ileostomy done on 05/07/2019. 3. The patient has history of ulcerative colitis. 4. History of conventional ileostomy. 5. History of malabsorption. 6. Diabetes. 7. Neuropathy. 8. Anemia. 9. Posttraumatic stress disorder. 10. History of multiple abdominal surgeries. 11. Allergies to nicotine, alcohol, and nicotine patch. 12. Social history is negative. 13. Family history is noncontributory. 14. MAR was noted. 15. Case was discussed with RN. 16. Case was discussed with Dr. Quintero. 17. Notes and records were noted. Orders were entered. Subjective Constitutional: Reports: fever, other - significant fever yesterday HEENT: Denies: congestion Respiratory: Denies: shortness of breath Cardiovascular: Denies: chest pain Gastrointestinal/Abdominal: Denies: nausea, vomiting, diarrhea Genitourinary: Denies: dysuria, frequency Psychiatric: Denies: depression Skin: Denies: rash Hematologic: Denies: bleeding Musculoskeletal: Reports: pain - controlled Allergies: Coded Allergies: ALCOHOL (Verified Allergy, Intermediate, 05/06/19) sever nausea when drinking alcohol NICOTINE (Unverified Allergy, Unknown, 05/07/19) Rash with nicotine patch Uncoded Allergies: nicotin patch (Allergy, Intermediate, Rash, 05/06/19) Objective Vital Signs Last 24 Hour Vital Signs Date Time Temp Pulse Resp B/P (MAP) Pulse Ox O2 Delivery O2 Flow Rate FiO2 05/25/19 12:00 97.7 95 20 112/74 (87) 97 05/25/19 09:00 Room Air 05/25/19 08:00 97.3 108 18 98/62 (74) 98 05/25/19 04:00 98.7 95 20 125/72 (89) 98 05/25/19 00:00 99.6 105 18 109/70 (83) 96 05/24/19 21:00 Room Air 05/24/19 20:00 98.4 98 18 123/70 (87) 99 05/24/19 16:00 98.9 102 18 115/71 (86) 99 Height (Feet): 5 Height (Inches): 9.00 Weight (Pounds): 164 General Appearance: no acute distress HEENT: normocephalic, atraumatic, anicteric, mucous membranes moist Respiratory/Chest: chest wall non-tender, lungs clear, normal breath sounds, no respiratory distress, no accessory muscle use Cardiovascular: normal rate, regular rhythm, no gallop/murmur, no JVD Abdomen: normal bowel sounds, soft, non tender, no organomegaly, non distended Genitourinary: other - no duval Extremities: no cyanosis Skin: no rash 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 Along the inferior aspect of the reservoir there is a peripherally enhancing fluid-filled tubular structure (axial series image #62; sagittal series image #36) which is favored to be related to the tail of the enteric collar. Possibility of a postsurgical fluid collection is thought less likely. Correlation with clinical symptoms however is recommended. * No evidence of small bowel obstruction. Improved ileus compared to prior exam. * Interval removal of gastrostomy tube. No evidence of fluid collection or other complication on the prior colostomy tube tract. * Very small focus of free intraperitoneal air is noted under the diaphragm, just anterior to the liver (series 6 image #27), likely residual from recent intervention and decreased from the prior exam. * Mildly distended bladder, possibly related to a degree of tension from enlarged and heterogeneous prostate. Chest x-ray - copd, report noted Microbiology Date/Time Source Procedure Growth Status 05/23/19 05:50 Blood Blood Culture - Preliminary NO GROWTH AFTER 24 HOURS Resulted 05/23/19 05:40 Blood Blood Culture - Preliminary NO GROWTH AFTER 24 HOURS Resulted 05/22/19 19:03 Stool Clostridium difficile Toxin Assay - Final Complete Laboratory Tests Test 05/25/19 05:10 White Blood Count 11.9 K/UL (4.8-10.8) H Red Blood Count 4.47 M/UL (4.70-6.10) L Hemoglobin 12.7 G/DL (14.2-18.0) L Hematocrit 39.1 % (42.0-52.0) L Mean Corpuscular Volume 88 FL (80-99) Mean Corpuscular Hemoglobin 28.4 PG (27.0-31.0) Mean Corpuscular Hemoglobin Concent 32.5 G/DL (32.0-36.0) Red Cell Distribution Width 11.9 % (11.6-14.8) Platelet Count 436 K/UL (150-450) Mean Platelet Volume 7.3 FL (6.5-10.1) Neutrophils (%) (Auto) 72.4 % (45.0-75.0) Lymphocytes (%) (Auto) 14.3 % (20.0-45.0) L Monocytes (%) (Auto) 9.7 % (1.0-10.0) Eosinophils (%) (Auto) 2.8 % (0.0-3.0) Basophils (%) (Auto) 0.8 % (0.0-2.0) Sodium Level 132 MMOL/L (136-145) L Potassium Level 4.6 MMOL/L (3.5-5.1) Chloride Level 99 MMOL/L (98-107) Carbon Dioxide Level 25 MMOL/L (21-32) Anion Gap 8 mmol/L (5-15) Blood Urea Nitrogen 12 mg/dL (7-18) Creatinine 0.8 MG/DL (0.55-1.30) Estimat Glomerular Filtration Rate > 60 mL/min (>60) Glucose Level 160 MG/DL (74-106) H Calcium Level 9.9 MG/DL (8.5-10.1) Total Bilirubin 0.2 MG/DL (0.2-1.0) Aspartate Amino Transf (AST/SGOT) 23 U/L (15-37) Alanine Aminotransferase (ALT/SGPT) 24 U/L (12-78) Alkaline Phosphatase 100 U/L (46-116) Total Protein 7.8 G/DL (6.4-8.2) Albumin 2.8 G/DL (3.4-5.0) L Globulin 5.0 g/dL Albumin/Globulin Ratio 0.6 (1.0-2.7) L Current Medications Medications (Trade) Dose Ordered Sig/Hai Route PRN Reason Start Time Stop Time Status Last Admin Dose Admin Acetaminophen (Tylenol) 650 mg Q4H PRN ORAL Temp > 100.2 05/18/19 21:15 06/17/19 21:14 05/24/19 00:40 Acetaminophen (Tylenol) 1,000 mg Q4H PRN ORAL temp>100.2 or headache 05/13/19 09:00 06/06/19 12:29 05/18/19 21:10 Acetaminophen/ Hydrocodone Bitart ([place] 10/325) 1 tab Q4H PRN ORAL For Pain 05/22/19 16:00 05/29/19 15:59 05/25/19 11:42 Acyclovir (Zovirax) 200 mg DAILY ORAL 05/06/19 18:00 06/05/19 17:59 05/25/19 09:18 Ascorbic Acid (Vitamin C) 500 mg Q4H PRN ORAL THICK EFFLUENT 05/16/19 22:00 06/15/19 21:59 05/17/19 18:20 Dextrose (Dextrose 50%) 25 ml Q30M PRN IV Hypoglycemia 05/08/19 07:45 06/07/19 07:44 Dextrose (Dextrose 50%) 50 ml Q30M PRN IV Hypoglycemia 05/08/19 07:45 06/07/19 07:44 Duloxetine HCl (Cymbalta) 60 mg DAILY ORAL 05/24/19 09:00 06/05/19 08:59 05/25/19 09:18 Insulin Aspart (NovoLOG) Q6HR SUBQ 05/09/19 00:00 06/08/19 00:00 05/25/19 11:44 Iopamidol (Isovue-300 100ml) 100 ml NOW PRN INJ Radiology Procedure 05/23/19 08:00 05/25/19 23:59 Ondansetron HCl (Zofran ODT) 4 mg Q6H PRN ORAL Nausea & Vomiting 05/17/19 08:45 06/16/19 08:44 Lei Heard MD May 25, 2019 15:56
[2019-05-25 16:00] VITALS: BP 109/71
[2019-05-25 17:00] LABS: APPEARANCE,URINE CLEAR; BILIRUBIN, URINE NEGATIVE (NEGATIVE); GLUCOSE, URINE (UA) 4+ (NEGATIVE); KETONES,URINE NEGATIVE (NEGATIVE); LEUKOCYTE ESTERASE ,URINE NEGATIVE (NEGATIVE); NITRITE,URINE NEGATIVE (NEGATIVE); PH,URINE 6 (4.5-8.0); PROTEIN,URINE 4+ (NEGATIVE); UROBILINOGEN,URINE 1 MG/DL (0.0-1.0)
[2019-05-25 17:10] LABS: COLOR,URINE YELLOW
--- NOTE | 2019-05-25 19:30 | Diagnostic Imaging Report ---
US VENOUS BILATERAL LOWER EXTREMITIES: No evidence of deep venous thrombosis.
[2019-05-25 20:00] VITALS: BP 106/73
[2019-05-26] VITALS (7 sets, daily range): BP systolic 99–121; BP diastolic 55–72
[2019-05-26] MEDS: HYDROcodone/Acetamin 10/325 tab ORAL PRN ×5 (01:54→20:32)
[2019-05-26] MEDS: NovoLOG Insulin Flexpen SUBQ SCH (05:36)
[2019-05-26 06:47] LABS: BASOPHILS % (AUTO) 0.9 % (0.0-2.0); EOSINOPHILS % (AUTO) 6.5 % (0.0-3.0); HEMATOCRIT 37.9 % (42.0-52.0); HEMOGLOBIN 12.5 G/DL (14.2-18.0); LYMPHOCYTES % (AUTO) 27.1 % (20.0-45.0); MEAN CORPUSCULAR VOLUME 87 FL (80-99); MONOCYTES % (AUTO) 10.7 % (1.0-10.0); NEUTROPHILS % (AUTO) 54.8 % (45.0-75.0); PLATELET COUNT 450 K/UL (150-450); RED BLOOD COUNT 4.36 M/UL (4.70-6.10); RED CELL DISTRIBUTION WIDTH 11.8 % (11.6-14.8); WHITE BLOOD COUNT 11.7 K/UL (4.8-10.8)
[2019-05-26 06:50] LABS: ANION GAP 10 mmol/L (5-15); BLOOD UREA NITROGEN 19 mg/dL (7-18); CALCIUM 9.7 MG/DL (8.5-10.1); CARBON DIOXIDE 24 MMOL/L (21-32); CHLORIDE 101 MMOL/L (98-107); CREATININE 0.8 MG/DL (0.55-1.30); POTASSIUM 3.8 MMOL/L (3.5-5.1); SODIUM 135 MMOL/L (136-145)
[2019-05-26] MEDS: Acyclovir 200mg Cap ORAL SCH (08:54)
[2019-05-26] MEDS ORDERED: Vancomycin 750mg/NS 275ml IVPB SCH ×2 (10:00)
[2019-05-26] MEDS: Vancomycin 750mg/NS 275ml IVPB SCH ×4 (11:00→20:46)
--- NOTE | 2019-05-26 12:20 | Infectious Diseases Prog Note ---
Assessment/Plan Assessment/Plan ASSESSMENT AND PLAN: 1. leukocytosis, fevers, ? occult sepsis, recent line removed, cultures neg, s/ p Pablo ileostomy - empiric vancomycin and zosyn started for persistent leukocytosis and recent fevers - monitor temperatures and wbc, labs, check echo (rule out vegetation) - lower extremity doppler scan negative for dvt - CT abdomen and pelvis without abscess, cultures neg to date, chest x-ray c/ w copd - d/w Dr. Quintero 2. The patient is status post Pablo ileostomy done on 05/07/2019. 3. The patient has history of ulcerative colitis. 4. History of conventional ileostomy. 5. History of malabsorption. 6. Diabetes. 7. Neuropathy. 8. Anemia. 9. Posttraumatic stress disorder. 10. History of multiple abdominal surgeries. 11. Allergies to nicotine, alcohol, and nicotine patch. 12. Social history is negative. 13. Family history is noncontributory. 14. MAR was noted. 15. Case was discussed with RN. 16. Case was discussed with Dr. Quintero. 17. Notes and records were noted. Orders were entered. Subjective Constitutional: Denies: fever HEENT: Denies: congestion Respiratory: Denies: shortness of breath Cardiovascular: Denies: chest pain Gastrointestinal/Abdominal: Denies: nausea, vomiting, diarrhea Genitourinary: Denies: dysuria Neurologic: Denies: headache Allergies: Coded Allergies: ALCOHOL (Verified Allergy, Intermediate, 05/06/19) sever nausea when drinking alcohol NICOTINE (Unverified Allergy, Unknown, 05/07/19) Rash with nicotine patch Uncoded Allergies: nicotin patch (Allergy, Intermediate, Rash, 05/06/19) Objective Vital Signs Last 24 Hour Vital Signs Date Time Temp Pulse Resp B/P (MAP) Pulse Ox O2 Delivery O2 Flow Rate FiO2 05/26/19 04:00 98.2 98 17 116/63 (80) 98 05/26/19 00:00 98.7 102 18 105/66 (79) 98 05/25/19 21:00 Room Air 05/25/19 20:00 97.2 104 18 106/73 (84) 100 05/25/19 16:00 98.4 106 18 109/71 (84) 98 Height (Feet): 5 Height (Inches): 9.00 Weight (Pounds): 164 General Appearance: no acute distress HEENT: normocephalic, atraumatic, anicteric Respiratory/Chest: lungs clear, normal breath sounds, no respiratory distress Cardiovascular: normal rate, regular rhythm Abdomen: normal bowel sounds, soft, non tender Objective CT abdomen and pelvis: IMPRESSION: * Postsurgical changes related to prior colectomy and more recent creation of a right lower quadrant continent ileostomy. Along the inferior aspect of the reservoir there is a peripherally enhancing fluid-filled tubular structure (axial series image #62; sagittal series image #36) which is favored to be related to the tail of the enteric collar. Possibility of a postsurgical fluid collection is thought less likely. Correlation with clinical symptoms however is recommended. * No evidence of small bowel obstruction. Improved ileus compared to prior exam. * Interval removal of gastrostomy tube. No evidence of fluid collection or other complication on the prior colostomy tube tract. * Very small focus of free intraperitoneal air is noted under the diaphragm, just anterior to the liver (series 6 image #27), likely residual from recent intervention and decreased from the prior exam. * Mildly distended bladder, possibly related to a degree of tension from enlarged and heterogeneous prostate. Chest x-ray - copd, report noted Microbiology Date/Time Source Procedure Growth Status 05/25/19 16:47 Urine,Clean Catch Urine Culture - Preliminary NO GROWTH Resulted Laboratory Tests Test 05/25/19 16:47 05/26/19 05:35 Urine Color Yellow Urine Appearance Clear Urine pH 6 (4.5-8.0) Urine Specific [place] 1.025 (1.005-1.035) Urine Protein 4+ (NEGATIVE) H Urine Glucose (UA) 4+ (NEGATIVE) H Urine Ketones Negative (NEGATIVE) Urine Blood 3+ (NEGATIVE) H Urine Nitrite Negative (NEGATIVE) Urine Bilirubin Negative (NEGATIVE) Urine Urobilinogen 1 MG/DL (0.0-1.0) H Urine Leukocyte Esterase Negative (NEGATIVE) Urine RBC 2-4 /HPF (0 - 0) H Urine WBC 0-2 /HPF (0 - 0) Urine Squamous Epithelial Cells None /LPF (NONE/OCC) Urine Amorphous Sediment Few /LPF (NONE) H Urine Bacteria Few /HPF (NONE) White Blood Count 11.7 K/UL (4.8-10.8) H Red Blood Count 4.36 M/UL (4.70-6.10) L Hemoglobin 12.5 G/DL (14.2-18.0) L Hematocrit 37.9 % (42.0-52.0) L Mean Corpuscular Volume 87 FL (80-99) Mean Corpuscular Hemoglobin 28.6 PG (27.0-31.0) Mean Corpuscular Hemoglobin Concent 32.9 G/DL (32.0-36.0) Red Cell Distribution Width 11.8 % (11.6-14.8) Platelet Count 450 K/UL (150-450) Mean Platelet Volume 7.5 FL (6.5-10.1) Neutrophils (%) (Auto) 54.8 % (45.0-75.0) Lymphocytes (%) (Auto) 27.1 % (20.0-45.0) Monocytes (%) (Auto) 10.7 % (1.0-10.0) H Eosinophils (%) (Auto) 6.5 % (0.0-3.0) H Basophils (%) (Auto) 0.9 % (0.0-2.0) Sodium Level 135 MMOL/L (136-145) L Potassium Level 3.8 MMOL/L (3.5-5.1) Chloride Level 101 MMOL/L (98-107) Carbon Dioxide Level 24 MMOL/L (21-32) Anion Gap 10 mmol/L (5-15) Blood Urea Nitrogen 19 mg/dL (7-18) H Creatinine 0.8 MG/DL (0.55-1.30) Estimat Glomerular Filtration Rate > 60 mL/min (>60) Glucose Level 132 MG/DL (74-106) H Calcium Level 9.7 MG/DL (8.5-10.1) Current Medications Medications (Trade) Dose Ordered Sig/Hai Route PRN Reason Start Time Stop Time Status Last Admin Dose Admin Acetaminophen (Tylenol) 650 mg Q4H PRN ORAL Temp > 100.2 05/18/19 21:15 06/17/19 21:14 05/24/19 00:40 Acetaminophen (Tylenol) 1,000 mg Q4H PRN ORAL temp>100.2 or headache 05/13/19 09:00 06/06/19 12:29 05/18/19 21:10 Acetaminophen/ Hydrocodone Bitart ([place] 10/325) 1 tab Q4H PRN ORAL For Pain 05/22/19 16:00 05/29/19 15:59 05/26/19 10:42 Acyclovir (Zovirax) 200 mg DAILY ORAL 05/06/19 18:00 06/05/19 17:59 05/26/19 08:54 Ascorbic Acid (Vitamin C) 500 mg Q4H PRN ORAL THICK EFFLUENT 05/16/19 22:00 06/15/19 21:59 05/17/19 18:20 Duloxetine HCl (Cymbalta) 60 mg DAILY ORAL 05/24/19 09:00 06/05/19 08:59 05/26/19 08:54 Ondansetron HCl (Zofran ODT) 4 mg Q6H PRN ORAL Nausea & Vomiting 05/17/19 08:45 06/16/19 08:44 Piperacillin Sod/ Tazobactam Sod 3.375 gm/Sodium Chloride 110 ml @ 27.5 mls/hr EVERY 8 HOURS IVPB 05/26/19 14:00 05/31/19 13:59 Vancomycin HCl (Vanco rx to dose) 1 ea DAILY PRN MISC Per rx protocol 05/26/19 09:00 06/25/19 08:59 Vancomycin HCl 750 mg/Sodium Chloride 275 ml @ 183.333 mls/hr Q12HR IVPB 05/26/19 11:00 05/31/19 10:59 05/26/19 11:00 Lei Heard MD May 26, 2019 12:20
[2019-05-26] MEDS: Piperacillin/Tazobactam 3.375 GM in NS 110 ML IVPB SCH ×2 (14:20→23:01)
--- NOTE | 2019-05-26 15:09 | General Progress Note ---
Progress Note Progress Note Had temp 102.8 at midnight 05/23 into 05/24 - afebrile since. Has mild tachycardia (100) Repeat CT scan without source of infection. WBC remains elevated although he feels well and is eating the BCIR diet tolerating it well Abdomen unremarkable High volume ileostomy output 2390cc in 24 hours. C. diff negative x 2 previously He has a shortened small intestine - may need Imodium or Lomotil WBC 11,700 Hgb 12.5 BUN 19 All cultures negative Imp. Infection of ? etiology Plan: evaluation ongoing now on Vanco and Zosyn continue q2h intubations of BCIR from am to hs and 0200 - transition to q3h on 05/28 in AM f/u labs - may need IV fluids if getting dehydrated with high volume ileostomy output Will Quintero MD May 26, 2019 15:09
[2019-05-27] MEDS: HYDROcodone/Acetamin 10/325 tab ORAL PRN ×6 (01:05→21:26)
[2019-05-27 04:14] VITALS: BP 130/66
[2019-05-27 06:12] LABS: BASOPHILS % (AUTO) 0.9 % (0.0-2.0); HEMATOCRIT 36.2 % (42.0-52.0); HEMOGLOBIN 11.9 G/DL (14.2-18.0); MEAN CORPUSCULAR VOLUME 86 FL (80-99); MONOCYTES % (AUTO) 10.5 % (1.0-10.0); NEUTROPHILS % (AUTO) 57.7 % (45.0-75.0); PLATELET COUNT 486 K/UL (150-450); RED BLOOD COUNT 4.19 M/UL (4.70-6.10); RED CELL DISTRIBUTION WIDTH 11.6 % (11.6-14.8)
[2019-05-27 06:25] LABS: ANION GAP 9 mmol/L (5-15); BLOOD UREA NITROGEN 13 mg/dL (7-18); CALCIUM 9.4 MG/DL (8.5-10.1); CARBON DIOXIDE 23 MMOL/L (21-32); CHLORIDE 103 MMOL/L (98-107); CREATININE 0.7 MG/DL (0.55-1.30); POTASSIUM 3.7 MMOL/L (3.5-5.1); SODIUM 135 MMOL/L (136-145)
[2019-05-27] MEDS: Piperacillin/Tazobactam 3.375 GM in NS 110 ML IVPB SCH ×3 (06:31→21:26)
[2019-05-27 08:00] VITALS: BP 107/64
[2019-05-27] MEDS: Acyclovir 200mg Cap ORAL SCH (08:48)
[2019-05-27] MEDS: Vancomycin 750mg/NS 275ml IVPB SCH ×2 (08:49)
--- NOTE | 2019-05-27 10:22 | Cardiology Report ---
APPROVED REPORT EXAM: Two-dimensional and M-mode echocardiogram with Doppler and color Doppler. INDICATION VEGITATION M-Mode DIMENSIONS IVSd0.9 (0.7-1.1cm)Left Atrium (MM)1.8 (1.6-4.0cm) LVDd4.7 (3.5-5.6cm)Aortic Root1.7 (2.0-3.7cm) PWd0.9 (0.7-1.1cm)Aortic Cusp Exc.1.6 (1.5-2.0cm) IVSs1.6 cm LVDs3.1 (2.5-4.0cm) PWs1.2 cm Other Information Technically limited study due to poor acoustical windows. Normal left ventricular chamber size, systolic function and wall motion . Left ventricular ejection fraction estimated to be 55-60 %. No evidence of left ventricular hypertrophy. No evidence of pericardial effusion. All other cardiac chamber sizes are within normal limits. Focal aortic valve sclerosis with adequate cusp excursion. Thickened mitral valve leaflets with normal excursion. Mitral annulus and aortic root calcification. Normal pulmonic valve structure. Normal tricuspid valve structure. IVC at normal size with physiologic collapse. A color flow and spectral Doppler study was performed and revealed: No aortic insufficiency. Trace mitral regurgitation. Mitral diastolic velocities suggest reduced left ventricular relaxation c/w mild LV diastolic dysfunction (Grade I ). Trace tricuspid regurgitation. Tricuspid systolic velocities suggests peak right ventricular systolic pressure of 11 mmHg
[2019-05-27 11:46] VITALS: BP 102/59
--- NOTE | 2019-05-27 15:05 | General Progress Note ---
Progress Note Progress Note Afebrile on Vanco and Zosyn - WBC finally wnl at 10,000 but platelets up 486,000 Intubating q2h am to hs and 0200 and doing well ABdomen soft Urine 1400 [facility] ileo 1840 No evidence of dehydration by labs even with the high volume ileostomy output BUN 13 Cr 0.7 Imp: improved on antibiotics Plan: f/u labs in AM tomorrow will start q3h BCIR self-intubations, and overnight prn only follow I&O Will Quintero MD May 27, 2019 15:05
[2019-05-27 16:35] VITALS: BP 109/64
--- NOTE | 2019-05-27 17:00 | Infectious Diseases Prog Note ---
Assessment/Plan Assessment/Plan ASSESSMENT AND PLAN: 1. leukocytosis, fevers, ? occult sepsis, recent line removed, cultures neg, s/ p Pablo ileostomy - zosyn - day # 2 - monitor temperatures and labs - lower extremity doppler scan negative for dvt, echo without vegetation mentioned - CT abdomen and pelvis without abscess, cultures neg to date, chest x-ray c/ w copd - d/w Dr. Quintero 2. The patient is status post Pablo ileostomy done on 05/07/2019. 3. The patient has history of ulcerative colitis. 4. History of conventional ileostomy. 5. History of malabsorption. 6. Diabetes. 7. Neuropathy. 8. Anemia. 9. Posttraumatic stress disorder. 10. History of multiple abdominal surgeries. 11. Allergies to nicotine, alcohol, and nicotine patch. 12. Social history is negative. 13. Family history is noncontributory. 14. MAR was noted. 15. Case was discussed with RN. 16. Case was discussed with Dr. Quintero. 17. Notes and records were noted. Orders were entered. Subjective Constitutional: Denies: fever HEENT: Denies: congestion Respiratory: Denies: shortness of breath Cardiovascular: Denies: chest pain Gastrointestinal/Abdominal: Denies: nausea, vomiting, diarrhea Genitourinary: Denies: dysuria Neurologic: Denies: headache, numbness Psychiatric: Denies: depression Skin: Denies: rash Endocrine: Denies: other Musculoskeletal: Reports: pain - abdominal pain controlled Allergies: Coded Allergies: ALCOHOL (Verified Allergy, Intermediate, 05/06/19) sever nausea when drinking alcohol NICOTINE (Unverified Allergy, Unknown, 05/07/19) Rash with nicotine patch Uncoded Allergies: nicotin patch (Allergy, Intermediate, Rash, 05/06/19) Objective Vital Signs Last 24 Hour Vital Signs Date Time Temp Pulse Resp B/P (MAP) Pulse Ox O2 Delivery O2 Flow Rate FiO2 05/27/19 16:35 98.1 87 18 109/64 (79) 99 05/27/19 13:42 98.8 05/27/19 11:46 98.8 71 18 102/59 (73) 97 05/27/19 09:00 Room Air 05/27/19 08:00 98.7 75 20 107/64 (78) 99 05/27/19 04:14 98.8 72 18 130/66 (87) 99 8/12/19 23:43 99.2 88 18 121/69 (86) 98 05/26/19 21:00 99.6 91 17 117/72 (87) 98 05/26/19 21:00 Room Air Height (Feet): 5 Height (Inches): 9.00 Weight (Pounds): 164 General Appearance: no acute distress HEENT: normocephalic, atraumatic, anicteric, mucous membranes moist Respiratory/Chest: lungs clear, normal breath sounds, no respiratory distress, no accessory muscle use Cardiovascular: normal rate, regular rhythm, no gallop/murmur, no JVD Abdomen: normal bowel sounds, soft, non tender, no organomegaly, non distended Genitourinary: other - no duval Extremities: no cyanosis Skin: no rash 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 Along the inferior aspect of the reservoir there is a peripherally enhancing fluid-filled tubular structure (axial series image #62; sagittal series image #36) which is favored to be related to the tail of the enteric collar. Possibility of a postsurgical fluid collection is thought less likely. Correlation with clinical symptoms however is recommended. * No evidence of small bowel obstruction. Improved ileus compared to prior exam. * Interval removal of gastrostomy tube. No evidence of fluid collection or other complication on the prior colostomy tube tract. * Very small focus of free intraperitoneal air is noted under the diaphragm, just anterior to the liver (series 6 image #27), likely residual from recent intervention and decreased from the prior exam. * Mildly distended bladder, possibly related to a degree of tension from enlarged and heterogeneous prostate. Chest x-ray - copd, report noted Microbiology Date/Time Source Procedure Growth Status 05/25/19 16:10 Blood Blood Culture - Preliminary NO GROWTH AFTER 24 HOURS Resulted 05/25/19 16:00 Blood Blood Culture - Preliminary NO GROWTH AFTER 24 HOURS Resulted 05/25/19 16:47 Urine,Clean Catch Urine Culture - Preliminary Mixed Gram Positive Organism Resulted Laboratory Tests Test 05/27/19 05:15 White Blood Count 10.0 K/UL (4.8-10.8) Red Blood Count 4.19 M/UL (4.70-6.10) L Hemoglobin 11.9 G/DL (14.2-18.0) L Hematocrit 36.2 % (42.0-52.0) L Mean Corpuscular Volume 86 FL (80-99) Mean Corpuscular Hemoglobin 28.3 PG (27.0-31.0) Mean Corpuscular Hemoglobin Concent 32.8 G/DL (32.0-36.0) Red Cell Distribution Width 11.6 % (11.6-14.8) Platelet Count 486 K/UL (150-450) H Mean Platelet Volume 7.2 FL (6.5-10.1) Neutrophils (%) (Auto) 57.7 % (45.0-75.0) Lymphocytes (%) (Auto) 22.0 % (20.0-45.0) Monocytes (%) (Auto) 10.5 % (1.0-10.0) H Eosinophils (%) (Auto) 9.0 % (0.0-3.0) H Basophils (%) (Auto) 0.9 % (0.0-2.0) Sodium Level 135 MMOL/L (136-145) L Potassium Level 3.7 MMOL/L (3.5-5.1) Chloride Level 103 MMOL/L (98-107) Carbon Dioxide Level 23 MMOL/L (21-32) Anion Gap 9 mmol/L (5-15) Blood Urea Nitrogen 13 mg/dL (7-18) Creatinine 0.7 MG/DL (0.55-1.30) Estimat Glomerular Filtration Rate > 60 mL/min (>60) Glucose Level 118 MG/DL (74-106) H Calcium Level 9.4 MG/DL (8.5-10.1) Current Medications Medications (Trade) Dose Ordered Sig/Hai Route PRN Reason Start Time Stop Time Status Last Admin Dose Admin Acetaminophen (Tylenol) 650 mg Q4H PRN ORAL Temp > 100.2 05/18/19 21:15 06/17/19 21:14 05/24/19 00:40 Acetaminophen (Tylenol) 1,000 mg Q4H PRN ORAL temp>100.2 or headache 05/13/19 09:00 06/06/19 12:29 05/18/19 21:10 Acetaminophen/ Hydrocodone Bitart ([place] 10/325) 1 tab Q4H PRN ORAL For Pain 05/27/19 07:04 06/03/19 07:03 05/27/19 13:06 Acyclovir (Zovirax) 200 mg DAILY ORAL 05/06/19 18:00 06/05/19 17:59 05/27/19 08:48 Ascorbic Acid (Vitamin C) 500 mg Q4H PRN ORAL THICK EFFLUENT 05/16/19 22:00 06/15/19 21:59 05/17/19 18:20 Duloxetine HCl (Cymbalta) 60 mg DAILY ORAL 05/24/19 09:00 06/05/19 08:59 05/27/19 08:48 Ondansetron HCl (Zofran ODT) 4 mg Q6H PRN ORAL Nausea & Vomiting 05/17/19 08:45 06/16/19 08:44 Piperacillin Sod/ Tazobactam Sod 3.375 gm/Sodium Chloride 110 ml @ 27.5 mls/hr EVERY 8 HOURS IVPB 05/26/19 14:00 05/31/19 13:59 05/27/19 14:41 Lei Heard MD May 27, 2019 17:00
[2019-05-27 20:00] VITALS: BP 114/64
[2019-05-28] VITALS: BP 107/66
[2019-05-28] MEDS: HYDROcodone/Acetamin 10/325 tab ORAL PRN ×5 (01:43→19:50)
[2019-05-28 04:00] VITALS: BP 111/67
[2019-05-28 05:47] LABS: BASOPHILS % (AUTO) 0.6 % (0.0-2.0); EOSINOPHILS % (AUTO) 11.5 % (0.0-3.0); HEMATOCRIT 36.2 % (42.0-52.0); HEMOGLOBIN 11.7 G/DL (14.2-18.0); LYMPHOCYTES % (AUTO) 30.6 % (20.0-45.0); MEAN CORPUSCULAR VOLUME 86 FL (80-99); MONOCYTES % (AUTO) 9.1 % (1.0-10.0); NEUTROPHILS % (AUTO) 48.1 % (45.0-75.0); PLATELET COUNT 516 K/UL (150-450); RED BLOOD COUNT 4.19 M/UL (4.70-6.10); RED CELL DISTRIBUTION WIDTH 11.9 % (11.6-14.8); WHITE BLOOD COUNT 10.1 K/UL (4.8-10.8)
[2019-05-28] MEDS: Piperacillin/Tazobactam 3.375 GM in NS 110 ML IVPB SCH ×3 (05:52→22:04)
[2019-05-28 06:09] LABS: ANION GAP 9 mmol/L (5-15); BLOOD UREA NITROGEN 13 mg/dL (7-18); CALCIUM 9.4 MG/DL (8.5-10.1); CARBON DIOXIDE 22 MMOL/L (21-32); CHLORIDE 107 MMOL/L (98-107); CREATININE 0.9 MG/DL (0.55-1.30); POTASSIUM 4.6 MMOL/L (3.5-5.1); SODIUM 138 MMOL/L (136-145)
[2019-05-28 08:00] VITALS: BP 109/64
[2019-05-28] MEDS: Acyclovir 200mg Cap ORAL SCH (09:10)
[2019-05-28 12:45] VITALS: BP 102/63
--- NOTE | 2019-05-28 14:44 | General Progress Note ---
Progress Note Progress Note Doing well afebrile normal WBC Now intubating on q3h schedule for BCIr pouch Plan: discharge when able to convert from IV antibiotics to po - per ID Will Quintero MD May 28, 2019 14:44
[2019-05-28 16:00] VITALS: BP 113/67
[2019-05-28 20:00] VITALS: BP 110/65
[2019-05-29] VITALS: BP 116/69
[2019-05-29] MEDS: HYDROcodone/Acetamin 10/325 tab ORAL PRN ×6 (00:09→21:51)
[2019-05-29 04:34] VITALS: BP 107/66
[2019-05-29] MEDS: Piperacillin/Tazobactam 3.375 GM in NS 110 ML IVPB SCH ×3 (05:23→21:50)
[2019-05-29 08:00] VITALS: BP 117/61
--- NOTE | 2019-05-29 08:17 | General Progress Note ---
Progress Note Progress Note Doing well with q3h intubations of Pablo Pouch Abdomen soft Urine 1200 BCI[facility] ileo 2240 Imp. stable - on antibiotics Plan; discharge when no longer needs IV antibiotics - per ID Will Quintero MD May 29, 2019 08:17
[2019-05-29] MEDS: Acyclovir 200mg Cap ORAL SCH (08:39)
[2019-05-29 12:00] VITALS: BP 94/65
[2019-05-29] MEDS ORDERED: NS 275ml ONE (12:26)
[2019-05-29] MEDS ORDERED: NS Irrig 1000ml ONE (12:26)
[2019-05-29 16:00] VITALS: BP 111/60
--- NOTE | 2019-05-29 17:25 | Infectious Diseases Prog Note ---
Assessment/Plan Assessment/Plan ASSESSMENT AND PLAN: 1. leukocytosis, fevers, ? occult sepsis, recent line removed, cultures neg, s/ p Pablo ileostomy - zosyn - day # 4 - monitor temperatures and labs - fevers and leukocytosis resolved - lower extremity doppler scan negative for dvt, echo without vegetation mentioned - CT abdomen and pelvis without abscess, cultures neg to date, chest x-ray c/ w copd - clinically stable 2. The patient is status post Pablo ileostomy done on 05/07/2019. 3. The patient has history of ulcerative colitis. 4. History of conventional ileostomy. 5. History of malabsorption. 6. Diabetes. 7. Neuropathy. 8. Anemia. 9. Posttraumatic stress disorder. 10. History of multiple abdominal surgeries. 11. Allergies to nicotine, alcohol, and nicotine patch. 12. Social history is negative. 13. Family history is noncontributory. 14. MAR was noted. 15. Case was discussed with RN. 16. Case was discussed with Dr. Quintero. 17. Notes and records were noted. Orders were entered. Subjective Constitutional: Reports: fatigue; Denies: fever HEENT: Denies: congestion Respiratory: Denies: shortness of breath Cardiovascular: Denies: chest pain Gastrointestinal/Abdominal: Reports: other - less abdominal pain ; Denies: nausea, vomiting, diarrhea Genitourinary: Denies: dysuria, hematuria, frequency Neurologic: Denies: headache Psychiatric: Denies: depression Skin: Denies: rash Hematologic: Denies: bleeding Musculoskeletal: Reports: pain - less abdominal pain Allergies: Coded Allergies: ALCOHOL (Verified Allergy, Intermediate, 05/06/19) sever nausea when drinking alcohol NICOTINE (Unverified Allergy, Unknown, 05/07/19) Rash with nicotine patch Uncoded Allergies: nicotin patch (Allergy, Intermediate, Rash, 05/06/19) Objective Vital Signs Last 24 Hour Vital Signs Date Time Temp Pulse Resp B/P (MAP) Pulse Ox O2 Delivery O2 Flow Rate FiO2 05/29/19 16:00 97.4 18 111/60 (77) 99 05/29/19 12:00 98.1 81 18 94/65 (75) 05/29/19 09:00 Room Air 05/29/19 08:00 97.8 86 17 117/61 (79) 99 05/29/19 04:34 98.0 92 18 107/66 (80) 97 05/29/19 00:00 98.1 98 20 116/69 (85) 97 05/28/19 21:00 Room Air 05/28/19 20:00 98.3 89 20 110/65 (80) 96 Height (Feet): 5 Height (Inches): 9.00 Weight (Pounds): 106 General Appearance: no acute distress HEENT: normocephalic, atraumatic, anicteric, mucous membranes moist Respiratory/Chest: lungs clear, normal breath sounds, no respiratory distress, no accessory muscle use Cardiovascular: normal rate, regular rhythm, no gallop/murmur, no JVD Abdomen: normal bowel sounds, soft, non tender, no organomegaly, non distended Genitourinary: other - no duval Extremities: no cyanosis Skin: no rash 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 Along the inferior aspect of the reservoir there is a peripherally enhancing fluid-filled tubular structure (axial series image #62; sagittal series image #36) which is favored to be related to the tail of the enteric collar. Possibility of a postsurgical fluid collection is thought less likely. Correlation with clinical symptoms however is recommended. * No evidence of small bowel obstruction. Improved ileus compared to prior exam. * Interval removal of gastrostomy tube. No evidence of fluid collection or other complication on the prior colostomy tube tract. * Very small focus of free intraperitoneal air is noted under the diaphragm, just anterior to the liver (series 6 image #27), likely residual from recent intervention and decreased from the prior exam. * Mildly distended bladder, possibly related to a degree of tension from enlarged and heterogeneous prostate. Chest x-ray - copd, report noted Microbiology Date/Time Source Procedure Growth Status 05/25/19 16:10 Blood Blood Culture - Preliminary NO GROWTH AFTER 48 HOURS Resulted 05/22/19 19:03 Stool Clostridium difficile Toxin Assay - Final Complete 05/25/19 16:47 Urine,Clean Catch Urine Culture - Final Mixed Gram Positive Organism Complete 05/19/19 07:00 Arm Left Catheter Tip Culture - Final NO GROWTH AFTER 4 DAYS Complete Labs Test 05/27/19 05:15 05/28/19 04:35 White Blood Count 10.0 K/UL (4.8-10.8) 10.1 K/UL (4.8-10.8) Red Blood Count 4.19 M/UL (4.70-6.10) 4.19 M/UL (4.70-6.10) Hemoglobin 11.9 G/DL (14.2-18.0) 11.7 G/DL (14.2-18.0) Hematocrit 36.2 % (42.0-52.0) 36.2 % (42.0-52.0) Mean Corpuscular Volume 86 FL (80-99) 86 FL (80-99) Mean Corpuscular Hemoglobin 28.3 PG (27.0-31.0) 27.9 PG (27.0-31.0) Mean Corpuscular Hemoglobin Concent 32.8 G/DL (32.0-36.0) 32.3 G/DL (32.0-36.0) Red Cell Distribution Width 11.6 % (11.6-14.8) 11.9 % (11.6-14.8) Platelet Count 486 K/UL (150-450) 516 K/UL (150-450) Mean Platelet Volume 7.2 FL (6.5-10.1) 7.1 FL (6.5-10.1) Neutrophils (%) (Auto) 57.7 % (45.0-75.0) 48.1 % (45.0-75.0) Lymphocytes (%) (Auto) 22.0 % (20.0-45.0) 30.6 % (20.0-45.0) Monocytes (%) (Auto) 10.5 % (1.0-10.0) 9.1 % (1.0-10.0) Eosinophils (%) (Auto) 9.0 % (0.0-3.0) 11.5 % (0.0-3.0) Basophils (%) (Auto) 0.9 % (0.0-2.0) 0.6 % (0.0-2.0) Sodium Level 135 MMOL/L (136-145) 138 MMOL/L (136-145) Potassium Level 3.7 MMOL/L (3.5-5.1) 4.6 MMOL/L (3.5-5.1) Chloride Level 103 MMOL/L (98-107) 107 MMOL/L (98-107) Carbon Dioxide Level 23 MMOL/L (21-32) 22 MMOL/L (21-32) Anion Gap 9 mmol/L (5-15) 9 mmol/L (5-15) Blood Urea Nitrogen 13 mg/dL (7-18) 13 mg/dL (7-18) Creatinine 0.7 MG/DL (0.55-1.30) 0.9 MG/DL (0.55-1.30) Estimat Glomerular Filtration Rate > 60 mL/min (>60) > 60 mL/min (>60) Glucose Level 118 MG/DL (74-106) 102 MG/DL (74-106) Calcium Level 9.4 MG/DL (8.5-10.1) 9.4 MG/DL (8.5-10.1) Current Medications Medications (Trade) Dose Ordered Sig/Hai Route PRN Reason Start Time Stop Time Status Last Admin Dose Admin Acetaminophen (Tylenol) 650 mg Q4H PRN ORAL Temp > 100.2 05/18/19 21:15 06/17/19 21:14 05/24/19 00:40 Acetaminophen (Tylenol) 1,000 mg Q4H PRN ORAL temp>100.2 or headache 05/13/19 09:00 06/06/19 12:29 05/18/19 21:10 Acetaminophen/ Hydrocodone Bitart ([place] 10/325) 1 tab Q4H PRN ORAL For Pain 05/27/19 07:04 06/03/19 07:03 05/29/19 17:05 Acyclovir (Zovirax) 200 mg DAILY ORAL 05/06/19 18:00 06/05/19 17:59 05/29/19 08:39 Ascorbic Acid (Vitamin C) 500 mg Q4H PRN ORAL THICK EFFLUENT 05/16/19 22:00 06/15/19 21:59 05/17/19 18:20 Duloxetine HCl (Cymbalta) 60 mg DAILY ORAL 05/24/19 09:00 06/05/19 08:59 05/29/19 08:42 Ondansetron HCl (Zofran ODT) 4 mg Q6H PRN ORAL Nausea & Vomiting 05/17/19 08:45 06/16/19 08:44 Piperacillin Sod/ Tazobactam Sod 3.375 gm/Sodium Chloride 110 ml @ 27.5 mls/hr EVERY 8 HOURS IVPB 05/26/19 14:00 05/31/19 13:59 05/29/19 15:21 Lei Heard MD May 29, 2019 17:25
[2019-05-29 20:00] VITALS: BP 115/64
[2019-05-30] VITALS: BP 105/68
[2019-05-30] MEDS: HYDROcodone/Acetamin 10/325 tab ORAL PRN ×5 (02:24→19:50)
[2019-05-30] MEDS: Piperacillin/Tazobactam 3.375 GM in NS 110 ML IVPB SCH ×3 (05:47→21:15)
[2019-05-30] MEDS ORDERED: Acetaminophen 650mg/20.3ml ORAL PRN (07:15)
[2019-05-30 08:00] VITALS: BP 117/68
[2019-05-30] MEDS: Acyclovir 200mg Cap ORAL SCH (09:05)
--- NOTE | 2019-05-30 11:47 | General Progress Note ---
Progress Note Progress Note Doing well with q3h Pablo pouch self-intubations. Abdomen well healed Urine 1175 BCIR ileo continued somewhat high volume 2175cc/24 hours Still on Zosyn Imp. Stable Plan; labs in AM transition from IV to po antibiotics per ID Will Quintero MD May 30, 2019 11:47
[2019-05-30 12:00] VITALS: BP 111/62
[2019-05-30 16:00] VITALS: BP 116/66
[2019-05-30 20:00] VITALS: BP 106/56
[2019-05-31] VITALS: BP 116/61
[2019-05-31] MEDS: HYDROcodone/Acetamin 10/325 tab ORAL PRN ×6 (00:05→21:08)
[2019-05-31 04:08] VITALS: BP 111/60
[2019-05-31] MEDS: Piperacillin/Tazobactam 3.375 GM in NS 110 ML IVPB SCH ×3 (05:46→21:08)
[2019-05-31 06:16] LABS: BASOPHILS % (AUTO) 0.7 % (0.0-2.0); EOSINOPHILS % (AUTO) 9.9 % (0.0-3.0); HEMATOCRIT 37.3 % (42.0-52.0); HEMOGLOBIN 12.4 G/DL (14.2-18.0); LYMPHOCYTES % (AUTO) 31.3 % (20.0-45.0); MEAN CORPUSCULAR VOLUME 86 FL (80-99); MONOCYTES % (AUTO) 7.2 % (1.0-10.0); NEUTROPHILS % (AUTO) 50.9 % (45.0-75.0); PLATELET COUNT 515 K/UL (150-450); RED BLOOD COUNT 4.33 M/UL (4.70-6.10); RED CELL DISTRIBUTION WIDTH 11.8 % (11.6-14.8); WHITE BLOOD COUNT 11.6 K/UL (4.8-10.8)
[2019-05-31 06:35] LABS: ANION GAP 10 mmol/L (5-15); BLOOD UREA NITROGEN 18 mg/dL (7-18); CALCIUM 9.4 MG/DL (8.5-10.1); CARBON DIOXIDE 22 MMOL/L (21-32); CHLORIDE 108 MMOL/L (98-107); CREATININE 0.9 MG/DL (0.55-1.30); SODIUM 139 MMOL/L (136-145)
[2019-05-31 08:00] VITALS: BP 105/64
[2019-05-31] MEDS: Acyclovir 200mg Cap ORAL SCH (08:08)
--- NOTE | 2019-05-31 09:59 | General Progress Note ---
Progress Note Progress Note Doing well with intubations and eating ABdomen soft Urine 1500 [facility]IR ileo 1515 WBC 11,600 Hgb up 12.4 Platelets 515,000 BUN up 18 IMp. Mild dehydratin Plan: IV fluids continue Zosyn Anticipate discharge in AM with Augmentin to complete course of treatment Will Quintero MD May 31, 2019 09:59
[2019-05-31 12:00] VITALS: BP 114/72
--- NOTE | 2019-05-31 15:19 | Infectious Diseases Prog Note ---
Assessment/Plan Assessment/Plan ASSESSMENT AND PLAN: 1. leukocytosis, fevers, ? occult sepsis, recent line removed, cultures neg, s/ p Pablo ileostomy - zosyn - day # 6 - can discharge on oral augmentin x one week - d/w Dr. Quintero - monitor temperatures and labs - fevers and leukocytosis improved, mild leukocytosis noted today - lower extremity doppler scan negative for dvt, echo without vegetation mentioned - CT abdomen and pelvis without abscess, cultures neg to date, chest x-ray c/ w copd - clinically stable 2. The patient is status post Pablo ileostomy done on 05/07/2019. 3. The patient has history of ulcerative colitis. 4. History of conventional ileostomy. 5. History of malabsorption. 6. Diabetes. 7. Neuropathy. 8. Anemia. 9. Posttraumatic stress disorder. 10. History of multiple abdominal surgeries. 11. Allergies to nicotine, alcohol, and nicotine patch. 12. Social history is negative. 13. Family history is noncontributory. 14. MAR was noted. 15. Case was discussed with RN. 16. Case was discussed with Dr. Quintero. 17. Notes and records were noted. Orders were entered. Subjective Constitutional: Denies: fever HEENT: Denies: congestion Respiratory: Denies: shortness of breath Cardiovascular: Denies: chest pain Gastrointestinal/Abdominal: Denies: nausea, vomiting, diarrhea Genitourinary: Denies: dysuria Neurologic: Denies: headache Psychiatric: Denies: depression Skin: Denies: rash Hematologic: Denies: bleeding Musculoskeletal: Denies: pain Allergies: Coded Allergies: ALCOHOL (Verified Allergy, Intermediate, 05/06/19) sever nausea when drinking alcohol NICOTINE (Unverified Allergy, Unknown, 05/07/19) Rash with nicotine patch Uncoded Allergies: nicotin patch (Allergy, Intermediate, Rash, 05/06/19) Objective Vital Signs Last 24 Hour Vital Signs Date Time Temp Pulse Resp B/P (MAP) Pulse Ox O2 Delivery O2 Flow Rate FiO2 05/31/19 12:00 98.0 76 18 114/72 (86) 99 05/31/19 09:00 Room Air 05/31/19 08:00 98.6 87 17 105/64 (78) 99 05/31/19 04:08 98.1 72 16 111/60 (77) 98 05/31/19 00:00 98.1 75 18 116/61 (79) 97 05/30/19 21:00 Room Air 05/30/19 20:00 98.2 87 17 106/56 (73) 99 05/30/19 16:00 98.2 102 17 116/66 (83) 100 Height (Feet): 5 Height (Inches): 9.00 Weight (Pounds): 106 General Appearance: no acute distress HEENT: normocephalic, atraumatic, anicteric, mucous membranes moist Respiratory/Chest: lungs clear, normal breath sounds, no respiratory distress, no accessory muscle use Cardiovascular: normal rate, regular rhythm, no gallop/murmur, no JVD Abdomen: normal bowel sounds, soft, non tender, no organomegaly, non distended Extremities: no cyanosis Skin: no rash 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 Along the inferior aspect of the reservoir there is a peripherally enhancing fluid-filled tubular structure (axial series image #62; sagittal series image #36) which is favored to be related to the tail of the enteric collar. Possibility of a postsurgical fluid collection is thought less likely. Correlation with clinical symptoms however is recommended. * No evidence of small bowel obstruction. Improved ileus compared to prior exam. * Interval removal of gastrostomy tube. No evidence of fluid collection or other complication on the prior colostomy tube tract. * Very small focus of free intraperitoneal air is noted under the diaphragm, just anterior to the liver (series 6 image #27), likely residual from recent intervention and decreased from the prior exam. * Mildly distended bladder, possibly related to a degree of tension from enlarged and heterogeneous prostate. Chest x-ray - copd, report noted Microbiology Date/Time Source Procedure Growth Status 05/25/19 16:10 Blood Blood Culture - Final NO GROWTH AFTER 5 DAYS Complete 05/22/19 19:03 Stool Clostridium difficile Toxin Assay - Final Complete 05/25/19 16:47 Urine,Clean Catch Urine Culture - Final Mixed Gram Positive Organism Complete 05/19/19 07:00 Arm Left Catheter Tip Culture - Final NO GROWTH AFTER 4 DAYS Complete Laboratory Tests Test 05/31/19 04:55 White Blood Count 11.6 K/UL (4.8-10.8) H Red Blood Count 4.33 M/UL (4.70-6.10) L Hemoglobin 12.4 G/DL (14.2-18.0) L Hematocrit 37.3 % (42.0-52.0) L Mean Corpuscular Volume 86 FL (80-99) Mean Corpuscular Hemoglobin 28.6 PG (27.0-31.0) Mean Corpuscular Hemoglobin Concent 33.2 G/DL (32.0-36.0) Red Cell Distribution Width 11.8 % (11.6-14.8) Platelet Count 515 K/UL (150-450) H Mean Platelet Volume 6.8 FL (6.5-10.1) Neutrophils (%) (Auto) 50.9 % (45.0-75.0) Lymphocytes (%) (Auto) 31.3 % (20.0-45.0) Monocytes (%) (Auto) 7.2 % (1.0-10.0) Eosinophils (%) (Auto) 9.9 % (0.0-3.0) H Basophils (%) (Auto) 0.7 % (0.0-2.0) Sodium Level 139 MMOL/L (136-145) Potassium Level 4.0 MMOL/L (3.5-5.1) Chloride Level 108 MMOL/L (98-107) H Carbon Dioxide Level 22 MMOL/L (21-32) Anion Gap 10 mmol/L (5-15) Blood Urea Nitrogen 18 mg/dL (7-18) Creatinine 0.9 MG/DL (0.55-1.30) Estimat Glomerular Filtration Rate > 60 mL/min (>60) Glucose Level 113 MG/DL (74-106) H Calcium Level 9.4 MG/DL (8.5-10.1) Current Medications Medications (Trade) Dose Ordered Sig/Hai Route PRN Reason Start Time Stop Time Status Last Admin Dose Admin Acetaminophen (Tylenol) 650 mg Q4H PRN ORAL Temp > 100.2 05/18/19 21:15 06/17/19 21:14 05/24/19 00:40 Acetaminophen (Tylenol) 1,000 mg Q4H PRN ORAL headache 05/30/19 07:15 06/06/19 12:29 Acetaminophen/ Hydrocodone Bitart ([place] 10/325) 1 tab Q4H PRN ORAL For Pain 05/27/19 07:04 06/03/19 07:03 05/31/19 12:11 Acyclovir (Zovirax) 200 mg DAILY ORAL 05/06/19 18:00 06/05/19 17:59 05/31/19 08:08 Ascorbic Acid (Vitamin C) 500 mg Q4H PRN ORAL THICK EFFLUENT 05/16/19 22:00 06/15/19 21:59 05/17/19 18:20 Duloxetine HCl (Cymbalta) 60 mg DAILY ORAL 05/24/19 09:00 06/05/19 08:59 05/31/19 08:08 Ondansetron HCl (Zofran ODT) 4 mg Q6H PRN ORAL Nausea & Vomiting 05/17/19 08:45 06/16/19 08:44 Piperacillin Sod/ Tazobactam Sod 3.375 gm/Sodium Chloride 110 ml @ 27.5 mls/hr EVERY 8 HOURS IVPB 05/29/19 22:00 06/03/19 21:59 05/31/19 14:59 Sodium Chloride 1,000 ml @ 100 mls/hr Q10H IV 05/31/19 11:00 06/30/19 10:59 05/31/19 11:38 Lei Heard MD May 31, 2019 15:19
[2019-05-31 16:00] VITALS: BP 107/66
[2019-05-31 20:00] VITALS: BP 105/68
[2019-05-31] MEDS: Augmentin 875mg Tab ORAL SCH (22:39)
[2019-06-01] VITALS: BP 106/54
[2019-06-01] MEDS: HYDROcodone/Acetamin 10/325 tab ORAL PRN ×3 (01:10→09:32)
[2019-06-01 04:00] VITALS: BP 117/68
[2019-06-01 06:29] LABS: BASOPHILS % (AUTO) 0.7 % (0.0-2.0); EOSINOPHILS % (AUTO) 9.9 % (0.0-3.0); HEMATOCRIT 36.5 % (42.0-52.0); HEMOGLOBIN 11.9 G/DL (14.2-18.0); LYMPHOCYTES % (AUTO) 29.9 % (20.0-45.0); MEAN CORPUSCULAR VOLUME 86 FL (80-99); MONOCYTES % (AUTO) 6.2 % (1.0-10.0); NEUTROPHILS % (AUTO) 53.3 % (45.0-75.0); PLATELET COUNT 491 K/UL (150-450); RED BLOOD COUNT 4.22 M/UL (4.70-6.10); RED CELL DISTRIBUTION WIDTH 11.8 % (11.6-14.8); WHITE BLOOD COUNT 12.2 K/UL (4.8-10.8)
[2019-06-01 06:39] LABS: ANION GAP 10 mmol/L (5-15); BLOOD UREA NITROGEN 11 mg/dL (7-18); CALCIUM 9.2 MG/DL (8.5-10.1); CARBON DIOXIDE 21 MMOL/L (21-32); CHLORIDE 105 MMOL/L (98-107); CREATININE 0.7 MG/DL (0.55-1.30); POTASSIUM 3.7 MMOL/L (3.5-5.1); SODIUM 136 MMOL/L (136-145)
[2019-06-01 08:00] VITALS: BP 101/61
[2019-06-01] MEDS ORDERED: GLIPIZIDE5 MG ORAL (08:02)
[2019-06-01] MEDS ORDERED: FERROUS SULFAT325 MG ORAL (08:02)
--- NOTE | 2019-06-01 08:29 | General Progress Note ---
Progress Note Progress Note AVSS Feels well and doing well abdomen soft Urine 1950 BCIR ileo 1060 - eating 100% WBC up 12,200 Hgb 11.9 Platelets down 491,000 BUN 11 Cr 0.7 Imp: Dehydration resolved mild leukocytosis Plan: discharge with Rx norco 10/325 and Augmentin 875mg q12h (#8) advised re WBC - will f/u with PMD in [place] full instructions/limitations/supplies discussed/provided f/u office 06/10 and prn Will Quintero MD Jun 01, 2019 08:29
[2019-06-01] MEDS: Acyclovir 200mg Cap ORAL SCH (09:31)
[2019-06-01] MEDS: Augmentin 875mg Tab ORAL SCH (09:31)
--- NOTE | 2019-06-03 16:50 | Discharge Summary ---
Discharge Summary Hospital Course Date of Admission May 06, 2019 at 07:47 Date of Discharge Jun 01, 2019 at 11:00 Admitting Diagnosis Malfunctioning ileostomy Reason for Hospitalization: elective surgery HPI Mejia Martinez is a 63 year old male who was admitted on May 06, 2019 at 07: 47 for Malfunctioning Ileostomy 63-year-old male in overall stable health with a malfunctioning ileostomy. The patient has a past history of ulcerative colitis and in 1990, underwent proctocolectomy with creation of a conventional Nikole ileostomy. In 1991, he underwent surgery to convert his conventional ileostomy to a Pablo type of continent ileostomy in [place] at the [facility]. In 1997, he had revision of his pouch with detachment from the abdominal wall. Four years after his surgery, he had ongoing abdominal pain and difficulty eating and multiple admissions for small bowel obstruction. He was found down at home in June 2018 and presented to the emergency room by ambulance with acute renal failure, severe dehydration, sepsis, and underwent surgery for a perforation of his Pablo continent ileostomy pouch. Dense adhesions were described. The conventional ileostomy was created. Pathology revealed no granulomas or malignancy, but only acute inflammation and ulcerations. Of note, was that the patient presented cachectic and extremely debilitated and nutritionally depleted. Since then, the patient has recovered with normal laboratories including albumin within normal limits and wishes to undergo surgery to create another continent ileostomy. He has difficulty coping with the ileostomy and managing it. He has frequent leaks under the appliance and he has developed prolapse of up to 5 cm. He is unable to function or work. He has also had a problem with frequent small bowel obstructions requiring nasogastric tube or brief periods of time fasting at home. He also states his stoma is located in the abdominal fold, which makes it more difficult to maintain an external appliance. The patient changes his appliance daily. When he had his Pablo pouch, he states he had occasional pouchitis, which resolved with Cipro. He is scheduled to undergo surgery to create another continent ileostomy. Consultations -ID specialist Procedures s/p 05/07/[address] Ingrid Pablo continent intestinal reservoir continent ileostomy with takedown of conventional ileostomy and temporary catheter gastrostomy. s/p 05/[address] abdomen and pelvis Status post recent abdominal surgery. Continent ileostomy and pouch noted within the pelvis. Catheter appears to be in good position. Distended loops of small bowel noted in the diffuse fashion is likely ileus given recent surgery. No abscess identified. Slightly distended urinary bladder noted. Mild posterior basilar atelectasis. Gastrostomy. s/p 05/23/19 CT scan abdomen and pelvis * Postsurgical changes related to prior colectomy and more recent creation of a right lower quadrant continent ileostomy. Along the inferior aspect of the reservoir there is a peripherally enhancing fluid-filled tubular structure (axial series image #62; sagittal series image #36) which is favored to be related to the tail of the enteric collar. Possibility of a postsurgical fluid collection is thought less likely. Correlation with clinical symptoms however is recommended. * No evidence of small bowel obstruction. Improved ileus compared to prior exam. * Interval removal of gastrostomy tube. No evidence of fluid collection or other complication on the prior colostomy tube tract. * Very small focus of free intraperitoneal air is noted under the diaphragm, just anterior to the liver (series 6 image #27), likely residual from recent intervention and decreased from the prior exam. * Mildly distended bladder, possibly related to a degree of tension from enlarged and heterogeneous prostate. Hospital Course 05/06 patient admitted BUN high 28 , started on IV fluid full discussion regarding pending surgery PICC line placed, started on empiric abx 05/07 status post surgery : Pablo continent intestinal reservoir; gastrostomy tolerated well 05/08 pain management with SERVICE DELIVERY SUPERVISOR morphine incisions clean, stoma pink. Bartolome drain, output closely monitored/ small amount serosanguineous labs were closely monitored , WBC 17,200 albumin 2.9 (was 3.4 pre-op after hydration) continue n.p.o. status, gastrostomy and Pablo pouch catheters to drainage continue Gomez (pelvic dissection) TPN ambulated as tolerated with assistance incentive spirometer use was encouraged while in the bed 05/09 able to ambulate in hallways good IS effort ; chest clear intake and output along with labs were closely monitored incisions clean, stoma pink n.p.o.status, TPN, Gomez, SERVICE DELIVERY SUPERVISOR 05/10 abdomen distended, soft; incisions clean, stoma pink. Bartolome drain with scan amount of serosanguineous output intake and output , labs noted npo status, TPN, Gomez, antibiotics (clinical peritonitis due to bowel being open for a prolonged time during the surgery) started on Venofer 100mg IV QD x 5 05/11 doing well on Morphine SERVICE DELIVERY SUPERVISOR (history of long-term hydrocodone usage) ambulated well in hallways abdomen still mildly distended, incisions clean intake and output closely monitored, labs noted persistent ileus npo status and TPN off continuous basal infusion of SERVICE DELIVERY SUPERVISOR 05/12 tolerated d/c of basal infusion of SERVICE DELIVERY SUPERVISOR abdomen still with mild soft distention, healing nicely labs and intake/output noted KUB 05/12 with persistent ileus Gomez dc urinary Gomez off abx ( Unasyn and Flagyl) 05/13 abdomen soft, flat, improved intake /output noted, labs noted ileus was resolving plan to start on clear liquid diet in AM 05/14 off SERVICE DELIVERY SUPERVISOR , started on Myrtle 10/325 q4h prn - his pre-admission med schedule for years TPN continued until diet can be advanced to BCIR diet 05/14 started on clear liquid diet with gastrostomy to continuous drainage; tolerated CL diet abdomen slightly distended, healing nicely intake/output, labs noted TPN continued continuous drainage of Pablo pouch was maintained in AM 05/15 plan to begin Gastrostomy 3:3 protocol and continue clear liquid diet 05/15 tolerated clear liquid diet and TPN intake /output, labs noted started on Gastrostomy 3:3 protocol clear liquids and TPN continued 05/16 tolerated clear liquids and gastrostomy 3:3 abdomen soft, healing nicely mild leukocytosis stool for dif negative intake/output, labs noted improved but mild leukocytosis U/A and urine culture BCIR low residue diet gastrostomy 5:1 protocol TPN continuous decompression of Pablo continent ileostomy pouch maintained 05/17 tolerated BCIR diet and gastrostomy 5: thick ileo effluent noted leucocytosis improving clinically, but leukocytosis with unclear etiology gastrostomy with continuous plugging continue TPN if worsening leukcoytosis will consider CT abdomen/pelvis with contrast 05/18 was doing well with BCIR diet occasional episodes of BCIR catheter getting plugged up but cleared with irrigation abdomen soft, healing nicely [place] drain removed intake/output, labs noted, leukocytosis trending down TPN to be continued for additional 24 hours continuous drainage of BCIR maintained if WBC normal in AM -plan to start BCIR self-intubations teaching with RN supervision , however if leukocytosis persist- plan CT scan abdomen / pelvis with contrast 05/19 fever last night, T 101.6 last night no abdominal complaints PICC line removed patient started on Zosyn IV CT scan abd+pelvis with oral and IV contrast - negative/no evidence of abscess abdomen soft, 1/3 mayela removed persistent leucocytosis, intake and output monitored urine culture - negative fever and leukocytosis of unclear ethology ? due to PICC line continue with Zosyn IV BCIR diet resumed IV hydration continued awaiting blood and PIC tip cultures 05/20 afebrile x 24 hours since PIC removed CT abd+pelvis negative patient felt much better, tolerated BCIR diet abdomen soft mayela/sutures removed and steri-strips applied labs and intake/output noted fever resolved, leukocytosis improved all cultures negative so far, including negative blood culture , urine culture and negative catheter tip Zosyn was discontinued IV fluids changed to NS due to hyponatremia plan to start RN supervised BCIR self-intubations and remove gastrostomy in AM 05/21 ate 75% of BCIR diet improving BCIR ileo catheter removed and reinserted readily started on RN supervised BCIR self-intubations q2h am to hs and 0200 off IV fluids continue strict I&O, monitor labs 05/22 doing well with q2h RN supervised BCIR self-intubations from am to hs and 0200 still elevated WBC 17,400 abdomen soft, stoma healing nicely gastrostomy removed readily intake and output, labs closely monitored persistent leukocytosis high volume ileo output - denied abdominal pain or cramping ID consult requested and appreciated stool for C. diff toxin 05/23 less po intake than previously and intermittent complaints of abdominal pain abdomen soft, flat, non-tender Incisions, gastrostomy site and stoma healing nicely persistent leucocytosis, CT scan abdomen+pelvis with oral and Iv contrast repeated started on IVF 28 Gomez to Pablo pouch to continuous drainage until after CT scan contrast clears through 05/24 WBC improved febrile abdomen soft, flat, non-tender Incisions, gastrostomy site and stoma all healing nicely tolerated diet catheter removed CT noted dc IVF, continue diet self intubation resumed, ok for shower 05/25 WBC improved fevers improved abdomen soft, flat, non-tender incisions, gastrostomy site and stoma -all healing nicely tolerated diet self intubated leukocytosis and fevers - improved diet continued as tolerated ok for shower continue with self intubation 05/26 had temp 102.8 at midnight 05/23 into 05/24 - afebrile since mild tachycardia (100) repeated CT abdomen/pelvis scan -without source of infection WBC remains elevated, although patient feels well , eating the BCIR diet and tolerating it well abdomen unremarkable high volume ileostomy output 2390cc in 24 hours stool C. diff negative x 2 previously patient has a shortened small intestine - may need Imodium or Lomotil intake/output, labs noted all cultures negative infection of unclear etiology evaluation remains ongoing on Vanco and Zosyn intubations of BCIR from am to hs every 2 hrs and 0200 continued- plan to transition to q3h on 05/28 in AM 05/27 afebrile, WBC down to normal, PLT up intubated q2h am to hs and 0200 and was doing well no evidence of dehydration by labs even with the high volume ileostomy output plan to start q3h BCIR self-intubations, and overnight prn only 05/28 Doing well afebrile normal WBC Now intubating on q3h schedule for BCIr pouch Plan: discharge when able to convert from IV antibiotics to po - per ID 05/29 Doing well with q3h intubations of Pablo Pouch Abdomen soft Urine 1200 BCIr ileo 2240 Imp. stable - on antibiotics Plan; discharge when no longer needs IV antibiotics - per ID 05/30 doing well with q3h Pablo pouch self-intubations. abdomen well healed still on Zosyn labs, intake/output monitored, remained stable transition from IV to po antibiotics as per ID 05/31 doing well with intubations and eating intake and output along with labs closely monitored mild dehydrating start IV fluids continue with Zosyn anticipate discharge in AM with Augmentin to complete course of treatment 06/01 dehydration resolved still with mild leukocytosis cleared for discharge with Rx for Myrtle 10/325 and Augmentin 875mg q12h (#8) advised re WBC - will f/u with PMD in [place] full instructions/limitations/supplies discussed/provided f/u office 06/10 and prn FINAL DIAGNOSES 1. Malfunctioning ileostomy. 2. History of ulcerative colitis. 3. Status post multiple abdominal operations. 3.1. Proctocolectomy and Nikole ileostomy in 1990. 3.2. Pablo continent intestinal reservoir in 1991 in [place]. 3.3. Revision for pouch detachment from abdominal wall in 1997. 3.4. Resection of Pablo pouch for perforation with sepsis and finding of dense adhesions with creation of a conventional ileostomy in [place] on 06/28/2018. 4. s/p Pablo continent intestinal reservoir continent ileostomy with takedown of conventional ileostomy and temporary catheter gastrostomy. 5. Ileus-resolved 6. Atelectasis 7. Moderate protein calorie malnutrition, present on admission 8. Persistent leucocytosis- improved ; fevers -resolved 9. Mild dehydration Discharge Medications Continued Medications: Acyclovir (Acyclovir) 200 Mg Capsule 200 MG PO DAILY, CAP Aspirin (Aspirin EC) 81 Mg Tablet.dr 81 MG ORAL DAILY, TAB (This prescription has been renewed) Calcium Carbonate (Calcium Carbonate) 650 Mg Tablet 650 MG PO BID, TAB Cyanocobalamin (Vitamin B-12) (Vitamin B-12) 1,000 Mcg Tablet 1000 MCG PO DAILY, TAB (This prescription has been renewed) Duloxetine Hcl* (Cymbalta*) 60 Mg Capsule.dr 60 MG ORAL DAILY, CAP (This prescription has been renewed) Etodolac (Etodolac) 300 Mg Capsule 300 MG PO BID, CAP Ferrous Sulfate* (Ferrous Sulfate*) 325 Mg Tablet 325 MG ORAL DAILY, TAB 0 Refills (This prescription has been renewed) Gabapentin* (Gabapentin*) 100 Mg Capsule 100 MG ORAL THREE TIMES A DAY, CAP (This prescription has been renewed) Glipizide* (Glipizide*) 5 Mg Tablet 5 MG ORAL TID, TAB (This prescription has been renewed) Hydrocodone Bit/Acetaminophen 10-325* (Hydrocodon-Acetaminophn 10-325*) 1 Each Tablet 1 TAB ORAL Q4H PRN for For Pain, TAB 0 Refills Magnesium Oxide (Mag-Oxide) 400 Mg Tablet 400 MG PO DAILY, TAB Ondansetron (Zofran) 4 Mg Tablet 4 MG ORAL Q8H PRN for Nausea & Vomiting, #10 TAB 0 Refills (This prescription has been renewed) Vitamin A (Vitamin A) 8,000 Unit Capsule 8000 UNIT PO 3XW, CAP Vitamin D (Vitamin D3) 400 Unit Tablet 1000 UNITS ORAL DAILY, TAB (This prescription has been renewed) Discharge Condition Upon Discharge: stable Discharge Disposition Patient was discharged home Discharge Instructions Discharge Instructions Special Instructions I have been assigned to complete a D/C Summary on this account. I was not involved in the patient management Olivia Sebastian NP Jun 03, 2019 16:50
== END 2019-06-01 11:00 | disposition home or self-care (01) | DRG 326 ==
LOC: 3E 05-06 07:47
PROC: 02HV33Z Insertion of Infusion Device into Superior Vena Cava, Percutaneous Approach (ICD-10-PCS; principal; 2019-05-06)
PROC: B518ZZA Fluoroscopy of Superior Vena Cava, Guidance (ICD-10-PCS; principal; 2019-05-06)
PROC: 0DH63UZ Insertion of Feeding Device into Stomach, Percutaneous Approach (ICD-10-PCS; 2019-05-07)
PROC: 0D160ZB Bypass Stomach to Ileum, Open Approach (ICD-10-PCS; 2019-05-07)
DX: K94.13 Enterostomy malfunction (principal); K65.8 Other peritonitis; E44.0 Moderate protein-calorie malnutrition; Z68.1 Body mass index [BMI] 19.9 or less, adult; K56.7 Ileus, unspecified; K90.49 Malabsorption due to intolerance, not elsewhere classified; R64 Cachexia; J98.11 Atelectasis; D64.9 Anemia, unspecified; K66.0 Peritoneal adhesions (postprocedural) (postinfection); R00.1 Bradycardia, unspecified; E11.40 Type 2 diabetes mellitus with diabetic neuropathy, unspecified; F43.10 Post-traumatic stress disorder, unspecified; E86.0 Dehydration; D72.829 Elevated white blood cell count, unspecified
CPT/HCPCS: 36415; 36569; 71045; 74018; 74177; 76937; 80048; 80053; 81001; 81003; 82607; 82728; 82746; 82962; 83540; 83550; 83735; 84100; 85007; 85025; 85610; 85730; 86850; 86900; 86901; 87040; 87070; 87086; 87324; 93005; 93306; 93970; 94003; 94150; J1815; J2250; J2405; J2710